=== PATIENT | female | born 1940 | race Caucasian/White ===

== ENCOUNTER 2018-08-22 14:16 | Observation (INO) | payer MEDICARE, MEDICAID, SELFPAY ==
[2018-08-22 14:17] VITALS: BP 115/69; PULSE 67; RESP 16; TEMP 37; O2SAT 98; BMI 26.6
--- NOTE | 2018-08-22 14:24 | HMH.EDGENADL ---
ED Disposition Clinical Impression: Dehydration, Acute kidney injury Diarrhea Qualifiers: Diarrhea type: unspecified type Qualified Code(s): R19.7 - Diarrhea, unspecified Disposition: Admitted as Observation Condition on Discharge: Fair Referrals: Provider,Referral, [Primary Care Provider] - - Critical Care Critical Care Time: No Attestation: On 08/22/18, the high probability of a clinically significant, sudden or life threatening deterioration of the following system(s) required my full and direct attention, intervention and personal management. The time I documented below is in addition to time spent performing reported procedures but includes the following listed in this critical care notation. Medical Decision Making - Zeke Inquiry Pt receiving controlled substance: No Vital Signs: 08/22/18 14:17 Temperature 98.6 F Temperature Source Oral Pulse Rate [Right Brachial] 67 Respiratory Rate 16 Blood Pressure [Right Arm] 115/69 Blood Pressure Mean [Right Arm] 84 Blood Pressure Source [Right Arm] Automatic Cuff Blood Pressure Position [Right Arm] Sitting 02 Sat by Pulse Oximetry 98 Oxygen Delivery Method Room Air - Lab Data Lab Results 08/22/18 14:45: WBC 6.8, RBC 4.61, Hgb 13.3, Hct 39.0, MCV 84.6, MCH 28.9, MCHC 34.1, RDW 12.9, Plt Count 352, MPV 6.6 L, Neut % (Auto) 82.0 H, Lymph % (Auto) 12.7, [place] % (Auto) 4.2, Eos % (Auto) 0.8, Baso % (Auto) 0.4, Neut # (Auto) 5.5, Lymph # (Auto) 0.9, [place] # (Auto) 0.3, Eos # (Auto) 0.1, Baso # (Auto) 0.0 08/22/18 14:45: Sodium 139, Potassium 4.3, Chloride 103, Carbon Dioxide 23, Anion Gap 17.3 H, BUN 59 H, Creatinine 1.77 H, Estimated Creat Clear 32, Estimated GFR 28 L, Est GFR ( Amer) 34 L, Glucose 104, Calcium 9.7, Total Bilirubin 0.4, AST 22, ALT 34, Alkaline Phosphatase 93, Total Protein 7.9, Albumin 3.4, Globulin 4.5 H, Albumin/Globulin Ratio 0.8 L 08/22/18 14:45: Troponin I < 0.02 Result diagrams: 08/22/18 14:45 08/22/18 14:45 Orders (Tests/Meds): ED MEDICATIONS Generic Name Dose Route Start Last Admin Trade Name Ada PRN Reason Stop Dose Admin Sodium Chloride 1,000 mls @ 100 mls/hr 08/22/18 15:30 08/22/18 15:39 Sod Chlor 0.9% 1000ml Bag IV 09/21/18 15:29 100 mls/hr .Q10H CAROLYN Administration Lactated Ringer's 1,000 mls @ 500 mls/hr 08/22/18 16:30 Lactated Ringer's 1000 Ml Bag IV 09/21/18 16:29 .Q2H CAROLYN ORDERS Category Date Time Status Diarrhea 23 Panel, PCR Stat Lab 08/22/18 14:23 Ordered Urinalysis and Microscopic Stat Lab 08/22/18 14:23 Ordered - ECG Data Tracing #1 EKG interpreted by Grzegorz Mejia MD: Rhythm: sinus Rate: 70 Odon: normal Ectopy: none Conduction: normal ST Segment Changes: none T Wave Changes: none Q Waves: none No evidence of acute ischemia or injury Baseline artifact and wander present, but I consider the EKG adequate for accurate interpretation. - Physician Consults Physician Consulted: Telma Time: 16:19 Reason -: Admission Comment/Response: Agrees to admit the patient to the hospital. We discussed the patient's clinical information, including history, exam, laboratory and radiology results and ED course. Per hospital procedure, I will write temporary bridge inpatient orders on the patient. Specific orders requested by the admitting physician: Bolus 1 L of lactated Ringer's over 2 hours, then infusion of saline as previously ordered. Recheck labs in the morning. Medical Decision Narrative: BUN and creatinine significantly elevated compared to labs from 8 months ago General Adult HPI - General Chief complaint: Weakness Stated complaint: weakness Time Seen by Provider: 08/22/18 14:46 Mode of Arrival: EMS Limitations: No Limitations Description of Symptoms (Recalled from ER Triage Doc. by RN): Pt c/o not being able to eat/drink for the past couple of days. No vomiting but diarrhea and feeling weak - History of Present Illness HPI narrative: The
--- NOTE | 2018-08-22 14:43 | PC.NURSE ---
Lab at bedside, MD at bedside
[2018-08-22 15:08] LABS: Basophils % 0.4 % (0.1-2.0); Eosinophils # 0.1 K/mm3 (0.0-0.4); Eosinophils % 0.8 % (0.1-12.0); Hemoglobin 13.3 g/dL (12.2-16.2); Lymphocytes # 0.9 K/mm3 (0.7-4.5); Lymphocytes % 12.7 % (10-50); Mean Corpuscular HGB Conc 34.1 g/dL (31.8-35.4); Mean Corpuscular Hemoglobin 28.9 pg (27.0-31.2); Mean Corpuscular Volume 84.6 fl (81-99); Mean Platelet Volume 6.6 fl (7.4-10.4); Monocytes # 0.3 K/mm3 (0.1-1.0); Monocytes % 4.2 % (1.7-9.3); Neutrophils # 5.5 K/mm3 (1.8-7.8); Platelet Count 352 K/mm3 (142-424); Red Blood Count 4.61 M/mm3 (4.20-5.40); Red Cell Distribution Width 12.9 % (11.5-17.5); White Blood Count 6.8 K/mm3 (4.8-10.8)
[2018-08-22 15:20] LABS: Alanine Aminotransferase 34 U/L (12-78); Albumin Level 3.4 gm/dL (3.4-5.0); Albumin/Globulin Ratio 0.8 (1.1-1.8); Alkaline Phosphatase 93 U/L (46-116); Anion Gap 17.3 mEq/L (5-15); Aspartate Amino Transferase 22 U/L (15-37); Bilirubin,Total 0.4 mg/dL (0.2-1.0); Blood Urea Nitrogen 59 mg/dL (7-18); Calcium 9.7 mg/dL (8.5-10.1); Carbon Dioxide 23 mmol/L (21.0-32.0); Chloride 103 mmol/L (98-107); Creatinine Clearance Estimated 32 mL/min (50-200); Creatinine,Serum 1.77 mg/dL (0.55-1.02); Estimated Glomerular Filt Rate 28 ml/min (>60); GFR (African American) 34 ML/MIN (>60); Globulin 4.5 gm/dl (1.3-3.2); Glucose 104 mg/dL (74-106); Potassium 4.3 mmoL/L (3.5-5.1); Sodium 139 mmol/L (136-145); Total Protein,Serum 7.9 gm/dL (6.4-8.2)
[2018-08-22 15:55] LABS: Troponin I < 0.02 ng/ml (0.00-0.06)
--- NOTE | 2018-08-22 16:10 | PC.NURSE ---
requesting service doctor. Dr. Ribera is service this month however is already out of office. Dr. Hollis is general hardware salesperson for Dr. Ribera. Spoke with Sheree in Dr. Rain office who states that he has three more patients to see but will notify him to call ED when he is available.
--- NOTE | 2018-08-22 16:14 | PC.NURSE ---
Dr. Mejia speaking with Dr. Hollis who is radio personality for [facility] for service
[2018-08-22 16:58] LABS: Microscopic, Urine URINE MICROSCOPIC (MICROSCOPIC)
[2018-08-22 17:02] VITALS: BP 125/85; PULSE 85; RESP 16; TEMP 36.8; O2SAT 98
[2018-08-22 17:03] LABS: Appearance,Urine CLEAR (Clear); Blood, Urine 1+ (Negative); Color,Urine YELLOW (Yellow); Glucose,Urine (UA) Negative (Negative); Ketones,Urine 1+ (Negative); Leukocyte Esterase,Urine 1+ (Negative); Nitrate,Urine Negative (Negative); Protein,Urine Negative (Negative); Urobilinogen,Urine 0.2 EU/dl (0.2)
[2018-08-22 17:11] LABS: Bilirubin,Urine Negative (Negative)
[2018-08-22 17:13] LABS: Bacteria,Urine 1+ /lpf; Squamous Epithelial Cell,Urine Occasional #/hpf (0-5)
[2018-08-22 17:22] VITALS: BP 116/65; PULSE 81; RESP 17; TEMP 36.4; O2SAT 96; BMI 26.3
[2018-08-22 18:21] VITALS: O2SAT 96
--- NOTE | 2018-08-22 18:45 | PC.NURSE ---
PATIENT ARRIVED ON FLOOR PER WHEELCHAIR, ABLE TO AMBULATE TO BED, A&OX4, LUNGS CLEAR, PULSES EQUAL, NO EDEMA NOTED. DR. DALAL AT BEDSIDE, INSTRUCTED PATIENT TO NOT EAT DAIRY PRODUCTS OR ANYTHING WITH RED COLORING. ORDERED LR 500ML/HR FOR 2 HOURS. PATIENT REFUSED TO EAT DINNER, RN PROVIDED JELLO, PATIENT ATE JELLO. PATIENT PROVIDED DIARRHEA SAMPLE, SAMPLE SENT TO LAB. PATIENT REFUSED TEDS, PATIENT EDUCATED ON IMPORTANCE OF [facility], PATIENT VERBALIZED AN UNDERSTANDING. NO OTHER NEEDS OR CONCERNS AT THIS TIME.
[2018-08-22 18:57] LABS: Adenovirus F 40/41, stool Not Detected (NotDetected); Astrovirus Not Detected (NotDetected); Campylobacter Not Detected (NotDetected); Cryptosporidium Not Detected (NotDetected); Cyclospora Cayetanesis Not Detected (NotDetected); Entamoeba histolytica Not Detected (NotDetected); Enteroaggregative E coli Not Detected (NotDetected); Enteropathogenic E coli Not Detected (NotDetected); Enterotoxigenic E coli Not Detected (NotDetected); Giardia lamblia Not Detected (NotDetected); Norovirus Not Detected (NotDetected); Plesimonas Shigalloides, PCR Not Detected (NotDetected); Rotavirus A Not Detected (NotDetected); Salmonella, PCR Not Detected (NotDetected); Sapovirus Not Detected (NotDetected); Shiga-like toxin E coli Not Detected (NotDetected); Shigella Enterovasive E coli Not Detected (NotDetected); Vibrio Cholerae Not Detected (NotDetected); Vibrio, PCR Not Detected (NotDetected); Yersinia Entercolitica, PCR Not Detected (NotDetected)
[2018-08-22 20:00] VITALS: BP 109/50; PULSE 70; RESP 18; TEMP 36.4; O2SAT 97
[2018-08-22 21:20] LABS: Clostridium Difficile A/B, PCR Detected (NotDetected)
--- NOTE | 2018-08-22 21:44 | HMH.HP ---
*Admission Date: 08/22/18 *Chief complaint: Diarrhea, fatigue *History of present illness: 78-year-old female with multiple comorbidities who presented to the ER due to fatigue, diarrhea, dehydration. She is a difficult time giving her history so family at bedside has assisted with several aspects. Patient reports that she has had some diarrhea for the past 3 to 4 days. Denies any nausea or vomiting, fevers, abdominal pain. She does not recall seeing her primary care doctor yesterday but her family reports that she must of seen someone yesterday as they started her on Flagyl. She cannot recall if she has started this medication. At this time she takes lisinopril for blood pressure but no other medications. The family reports that she is gotten extensive history including colon cancer. Patient lives by herself but has family close by that check on her daily. She has otherwise been maintaining her ADLs until onset of this illness with diarrhea. Denies melenic stools or BRBPR. Hemodynamically stable on RA. Labs on admission found BEV, elevated BUN, stool culture with H History I have reviewed the patient's past medical history: Yes Medical History: Reports:: Cancer (COLON) Denies:: Diabetes Mellitus Type 1, Diabetes Mellitus Type 2, Internal Pacemaker, MRSA *Have you ever received a pneumonia vaccine?: No *Have you received a flu vaccine this season?: No Other Surgeries: No: Pacemaker Amputation: No Fractures: No - *Social History Educational Level: Attended College Alcohol Intake: never *Occupational Status:: retired Housing: other Household Members: significant other *Travel in the last 8 weeks: None - Psychiatric History Expresses thoughts of harming self/others: None Suicide Plan Description: No Plan Family Hx:: Cancer, Coronary Artery Disease, Heart Attack, Hyperlipidemia, Hypertension Review of Systems - Review of Systems Review of systems:: pertinent systems reviewed and negative unless documented below - *Neurologic Denies headache(s) Meds Home Medications Medication Instructions Recorded Confirmed Type Aspirin [Aspirin 81mg chewable 81 mg PO DAILY 12/06/17 08/22/18 History tab] Allergies Allergy/AdvReac Type Severity Reaction Status Date / Time No Known Allergies Allergy Verified 08/22/18 14:21 Exam Vital signs and Labs for Last 24 Hours: Temp Pulse Resp BP Pulse Ox 97.5 F L 81 17 116/65 96 08/22/18 17:22 08/22/18 17:22 08/22/18 17:22 08/22/18 17:22 08/22/18 18:21 Laboratory Results - last 24 hr 08/22/18 14:45: WBC 6.8, RBC 4.61, Hgb 13.3, Hct 39.0, MCV 84.6, MCH 28.9, MCHC 34.1, RDW 12.9, Plt Count 352, MPV 6.6 L, Neut % (Auto) 82.0 H, Lymph % (Auto) 12.7, [place] % (Auto) 4.2, Eos % (Auto) 0.8, Baso % (Auto) 0.4, Neut # (Auto) 5.5, Lymph # (Auto) 0.9, [place] # (Auto) 0.3, Eos # (Auto) 0.1, Baso # (Auto) 0.0 08/22/18 14:45: Sodium 139, Potassium 4.3, Chloride 103, Carbon Dioxide 23, Anion Gap 17.3 H, BUN 59 H, Creatinine 1.77 H, Estimated Creat Clear 32, Estimated GFR 28 L, Est GFR ( Amer) 34 L, Glucose 104, Calcium 9.7, Total Bilirubin 0.4, AST 22, ALT 34, Alkaline Phosphatase 93, Total Protein 7.9, Albumin 3.4, Globulin 4.5 H, Albumin/Globulin Ratio 0.8 L 08/22/18 14:45: Troponin I < 0.02 08/22/18 16:55: Urine Color Yellow, Urine Appearance Clear, Urine pH 6.0, Ur Specific [place] 1.020, Urine Protein Negative, Urine Glucose (UA) Negative, Urine Ketones 1+, Urine Blood 1+, Urine Nitrate Negative, Urine Bilirubin Negative, Urine Urobilinogen 0.2, Ur Leukocyte Esterase 1+ A, Urine WBC 3-5, Ur Squamous Epith Cells Occasional, Urine Bacteria 1+ 08/22/18 18:24: Stl Aeromonas (PCR) Not detected, Stl C. cayetanensis PCR Not detected, Stool Rotavirus (PCR) Not detected, Stl Adenov F 40/41 PCR Not detected, Stool Astrovirus (PCR) Not detected, Stool Campylobacter PCR Not detected, Stl C.difficile Tox PCR Detected A, Stool Cryptosporidium PCR Not detected, Stl E.coli Shiga Tox P
--- NOTE | 2018-08-22 21:51 | P.HP_ITS ---
*Admission Date: 08/22/18 *Chief complaint: Diarrhea, fatigue *History of present illness: 78-year-old female with multiple comorbidities who presented to the ER due to fatigue, diarrhea, dehydration. She is a difficult time giving her history so family at bedside has assisted with several aspects. Patient reports that she has had some diarrhea for the past 3 to 4 days. Denies any nausea or vomiting, fevers, abdominal pain. She does not recall seeing her primary care doctor yesterday but her family reports that she must of seen someone yesterday as they started her on Flagyl. She cannot recall if she has started this medication. At this time she takes lisinopril for blood pressure but no other medications. The family reports that she is gotten extensive history including colon cancer. Patient lives by herself but has family close by that check on her daily. She has otherwise been maintaining her ADLs until onset of this illness with diarrhea. Denies melenic stools or BRBPR. Hemodynamically stable on RA. Labs on admission found BEV, elevated BUN, stool culture with H History I have reviewed the patient's past medical history: Yes Medical History: Reports:: Cancer (COLON) Denies:: Diabetes Mellitus Type 1, Diabetes Mellitus Type 2, Internal Pacemaker, MRSA *Have you ever received a pneumonia vaccine?: No *Have you received a flu vaccine this season?: No Other Surgeries: No: Pacemaker Amputation: No Fractures: No - *Social History Educational Level: Attended College Alcohol Intake: never *Occupational Status:: retired Housing: other Household Members: significant other *Travel in the last 8 weeks: None - Psychiatric History Expresses thoughts of harming self/others: None Suicide Plan Description: No Plan Family Hx:: Cancer, Coronary Artery Disease, Heart Attack, Hyperlipidemia, Hypertension Review of Systems - Review of Systems Review of systems:: pertinent systems reviewed and negative unless documented below - *Neurologic Denies headache(s) Meds Home Medications Medication Instructions Recorded Confirmed Type Aspirin [Aspirin 81mg chewable 81 mg PO DAILY 12/06/17 08/22/18 History tab] Allergies Allergy/AdvReac Type Severity Reaction Status Date / Time No Known Allergies Allergy Verified 08/22/18 14:21 Exam Vital signs and Labs for Last 24 Hours: Temp Pulse Resp BP Pulse Ox 97.5 F L 81 17 116/65 96 08/22/18 17:22 08/22/18 17:22 08/22/18 17:22 08/22/18 17:22 08/22/18 18:21 Laboratory Results - last 24 hr 08/22/18 14:45: WBC 6.8, RBC 4.61, Hgb 13.3, Hct 39.0, MCV 84.6, MCH 28.9, MCHC 34.1, RDW 12.9, Plt Count 352, MPV 6.6 L, Neut % (Auto) 82.0 H, Lymph % (Auto) 12.7, [place] % (Auto) 4.2, Eos % (Auto) 0.8, Baso % (Auto) 0.4, Neut # (Auto) 5.5, Lymph # (Auto) 0.9, [place] # (Auto) 0.3, Eos # (Auto) 0.1, Baso # (Auto) 0.0 08/22/18 14:45: Sodium 139, Potassium 4.3, Chloride 103, Carbon Dioxide 23, Anion Gap 17.3 H, BUN 59 H, Creatinine 1.77 H, Estimated Creat Clear 32, Estimated GFR 28 L, Est GFR ( Amer) 34 L, Glucose 104, Calcium 9.7, Total Bilirubin 0.4, AST 22, ALT 34, Alkaline Phosphatase 93, Total Protein 7.9, Albumin 3.4, Globulin 4.5 H, Albumin/Globulin Ratio 0.8 L 08/22/18 14:45: Troponin I < 0.02 08/22/18 16:55: Urine Color Yellow, Urine Appearance Clear, Urine pH 6.0, Ur Specific [place] 1.020, Urine Protein Negative, Urine Gluco
--- NOTE | 2018-08-23 04:21 | PC.NURSE ---
Slept at intervals this shift. Pt in contact-enteric for c diff. Precautions explained to pt and family w/ verbalization of understanding- pt family member states that she has had c diff in the past. [place] transfers [place] [facility] [place]o safety concerns. Refuses TEDS. #20 (L) wrist w/ NS @ 100 mls/hr. VSS. Will continue to monitor.
[2018-08-23 05:12] VITALS: BP 101/52; PULSE 68; RESP 16; TEMP 37; O2SAT 95
[2018-08-23 05:22] VITALS: BMI 25.9
--- NOTE | 2018-08-23 07:15 | PC.NURSE ---
REPORT GIVEN TO Baljinder WINSLOW
--- NOTE | 2018-08-23 07:25 | HMH.PHAVTE ---
[facility] Pharmacy VTE Monitoring - Patient Demographics Admission date: 08/22/18 Report Date: 08/23/18 Time: 07:25 Allergies/Adverse Reactions: Patient Allergies No Known Allergies Allergy (Verified 08/22/18 14:21) Height: 1.7 m Weight: 75.296 kg Patient Problems: Current Active Problems (Updated 08/22/18 @ 22:01 by Tommie Hollis MD) Dehydration (Acute) Acute kidney injury (Acute) Diarrhea (Acute) Essential hypertension (Chronic) C. difficile colitis (Acute) - VTE Risk Labs: VTE Related Lab Results Hgb 13.3 g/dL (12.2-16.2) 08/22/18 14:45 Hct 39.0 % (37.0-47.0) 08/22/18 14:45 Plt Count 352 K/mm3 (142-424) 08/22/18 14:45 BUN 59 mg/dL (7-18) H 08/22/18 14:45 Creatinine 1.77 mg/dL (0.55-1.02) H 08/22/18 14:45 Estimated Creat Clear 32 mL/min (50-200) 08/22/18 14:45 VTE Score: 6 VTE Risk Level: Moderate Risk - Prophylaxis VTE Prophylaxis Ordered?: Yes Types of VTE Prophylaxis: TEDS Knee High Location of Applied Device: Bilateral Lower Extremeties - VTE Diagnosis Confirmed Treatment or plan recommended: Continue Current Treatment
[2018-08-23 08:00] VITALS: BP 110/55; PULSE 79; RESP 18; TEMP 36.8; O2SAT 99
[2018-08-23 08:23] LABS: Blood Urea Nitrogen 38 mg/dL (7-18); Carbon Dioxide 20 mmol/L (21.0-32.0); Chloride 110 mmol/L (98-107); Creatinine Clearance Estimated 55 mL/min (50-200); Creatinine,Serum 0.91 mg/dL (0.55-1.02); Estimated Glomerular Filt Rate 60 ml/min (>60); GFR (African American) 72 ML/MIN (>60); Glucose 97 mg/dL (74-106); Sodium 143 mmol/L (136-145)
[2018-08-23 08:43] LABS: Calcium 8.2 mg/dL (8.5-10.1)
[2018-08-23 08:50] LABS: Basophils % 0.4 % (0.1-2.0); Eosinophils # 0.1 K/mm3 (0.0-0.4); Eosinophils % 1.6 % (0.1-12.0); Hematocrit 35.6 % (37.0-47.0); Lymphocytes # 0.9 K/mm3 (0.7-4.5); Lymphocytes % 15.4 % (10-50); Mean Corpuscular HGB Conc 31.5 g/dL (31.8-35.4); Mean Corpuscular Hemoglobin 28.8 pg (27.0-31.2); Mean Corpuscular Volume 91.5 fl (81-99); Mean Platelet Volume 6.9 fl (7.4-10.4); Monocytes # 0.2 K/mm3 (0.1-1.0); Monocytes % 3.1 % (1.7-9.3); Neutrophils # 4.7 K/mm3 (1.8-7.8); Neutrophils % 79.5 % (37.0-80.0); Platelet Count 267 K/mm3 (142-424); Red Blood Count 3.89 M/mm3 (4.20-5.40); Red Cell Distribution Width 13.9 % (11.5-17.5); White Blood Count 5.9 K/mm3 (4.8-10.8)
--- NOTE | 2018-08-23 08:56 | HMH.DCSUM ---
General - General Admission date:: 08/22/18 Discharge date: 08/23/18 HPI HPI: 78-year-old female with multiple comorbidities who presented to the ER due to fatigue, diarrhea, dehydration. She is a difficult time giving her history so family at bedside has assisted with several aspects. Patient reports that she has had some diarrhea for the past 3 to 4 days. Denies any nausea or vomiting, fevers, abdominal pain. She does not recall seeing her primary care doctor yesterday but her family reports that she must of seen someone yesterday as they started her on Flagyl. She cannot recall if she has started this medication. At this time she takes lisinopril for blood pressure but no other medications. The family reports that she is gotten extensive history including colon cancer. Patient lives by herself but has family close by that check on her daily. She has otherwise been maintaining her ADLs until onset of this illness with diarrhea. Denies melenic stools or BRBPR. Hemodynamically stable on RA. Labs on admission found BEV, elevated BUN, stool culture with PCR evidence of C. difficile Hospital Course Hospital Course: Patient was admitted, rehydrated. Acute kidney injury resolved this morning with normal creatinine. Diarrhea slowed, continues to have some liquid stools but less frequent. No blood. No fevers. Exam normalized this morning. Patient will be discharged home to follow-up with her regular physicians with 1 week supply of vancomycin orally. Objective Vital signs: Temp Pulse Resp BP Pulse Ox 98.2 F 79 18 110/55 L 99 08/23/18 08:00 08/23/18 08:00 08/23/18 08:00 08/23/18 08:00 08/23/18 08:00 Narrative: Patient is pleasant, alert, oriented x3. Oropharynx clear. Heart rate regular. Lungs are clear, abdomen soft, no tenderness. Normal bowel sounds. No edema or clubbing. Results Labs on day of discharge: Labs from last 24 hours 08/23/18 08/23/18 08/22/18 08:39 05:46 18:24 WBC 5.9 RBC 3.89 L Hgb Hct 35.6 L MCV 91.5 MCH 28.8 MCHC 31.5 L RDW 13.9 Plt Count 267 MPV 6.9 L Neut % (Auto) 79.5 Lymph % (Auto) 15.4 [place] % (Auto) 3.1 Eos % (Auto) 1.6 Baso % (Auto) 0.4 Neut # (Auto) 4.7 Lymph # (Auto) 0.9 [place] # (Auto) 0.2 Eos # (Auto) 0.1 Baso # (Auto) 0.0 Sodium 143 Potassium 5.0 Chloride 110 H Carbon Dioxide 20 L Anion Gap 18.0 H BUN 38 H D Creatinine 0.91 D Estimated Creat Clear 55 Estimated GFR 60 Est GFR ( Amer) 72 D Glucose 97 Calcium 8.2 L D Total Bilirubin AST ALT Alkaline Phosphatase Troponin I Total Protein Albumin Globulin Albumin/Globulin Ratio Urine Color Urine Appearance Urine pH Ur Specific [place] Urine Protein Urine Glucose (UA) Urine Ketones Urine Blood Urine Nitrate Urine Bilirubin Urine Urobilinogen Ur Leukocyte Esterase Urine WBC Ur Squamous Epith Cells Urine Bacteria Stl Aeromonas (PCR) Not detected Stl C. cayetanensis PCR Not detected Stool Rotavirus (PCR) Not detected Stl Adenov F 40/41 PCR Not detected Stool Astrovirus (PCR) Not detected Stool Campylobacter PCR Not detected Stl C.difficile Tox PCR Detected A Stool Cryptosporidium PCR Not detected Stl E.coli Shiga Tox PCR Not detected Stool E coli O157 PCR Not detected Stl Enterotoxigenic E PCR Not detected Stool EPEC (PCR) Not detected Stool EAEC (PCR) Not detected Stl E. histolytica PCR Not detected Stool Giardia [place] PCR Not detected Stool Salmonella PCR Not detected Stool Sapovirus (PCR) Not detected Stl P. shigelloides PCR Not detected Stl Shigella/EIEC PCR Not detected St Y.enterocolitica PCR Not detected Stool Vibrio (PCR) Not detected Stl Vibrio cholerae PCR Not detected Stl Norovirus GI/GII PCR Not detected
--- NOTE | 2018-08-23 08:59 | P.DS_ITS ---
General - General Admission date:: 08/22/18 Discharge date: 08/23/18 HPI HPI: 78-year-old female with multiple comorbidities who presented to the ER due to fatigue, diarrhea, dehydration. She is a difficult time giving her history so family at bedside has assisted with several aspects. Patient reports that she has had some diarrhea for the past 3 to 4 days. Denies any nausea or vomiting, fevers, abdominal pain. She does not recall seeing her primary care doctor yesterday but her family reports that she must of seen someone yesterday as they started her on Flagyl. She cannot recall if she has started this medication. At this time she takes lisinopril for blood pressure but no other medications. The family reports that she is gotten extensive history including colon cancer. Patient lives by herself but has family close by that check on her daily. She has otherwise been maintaining her ADLs until onset of this illness with diarrhea. Denies melenic stools or BRBPR. Hemodynamically stable on RA. Labs on admission found BEV, elevated BUN, stool culture with PCR evidence of C. difficile Hospital Course Hospital Course: Patient was admitted, rehydrated. Acute kidney injury resolved this morning with normal creatinine. Diarrhea slowed, continues to have some liquid stools but less frequent. No blood. No fevers. Exam normalized this morning. Patient will be discharged home to follow-up with her regular physicians with 1 week supply of vancomycin orally. Objective Vital signs: Temp Pulse Resp BP Pulse Ox 98.2 F 79 18 110/55 L 99 08/23/18 08:00 08/23/18 08:00 08/23/18 08:00 08/23/18 08:00 08/23/18 08:00 Narrative: Patient is pleasant, alert, oriented x3. Oropharynx clear. Heart rate regular. Lungs are clear, abdomen soft, no tenderness. Normal bowel sounds. No edema or clubbing. Results Labs on day of discharge: Labs from last 24 hours 08/23/18 08/23/18 08/22/18 08:39 05:46 18:24 WBC 5.9 RBC 3.89 L Hgb Hct 35.6 L MCV 91.5 MCH 28.8 MCHC 31.5 L RDW 13.9 Plt Count 267 MPV 6.9 L Neut % (Auto) 79.5 Lymph % (Auto) 15.4 [place] % (Auto) 3.1 Eos % (Auto) 1.6 Baso % (Auto) 0.4 Neut # (Auto) 4.7 Lymph # (Auto) 0.9 [place] # (Auto) 0.2 Eos # (Auto) 0.1 Baso # (Auto) 0.0 Sodium 143 Potassium 5.0 Chloride 110 H Carbon Dioxide 20 L Anion Gap 18.0 H BUN 38 H D Creatinine 0.91 D Estimated Creat Clear 55 Estimated GFR 60 Est GFR ( Amer) 72 D Glucose 97 Calcium 8.2 L D Total Bilirubin AST ALT Alkaline Phosphatase Troponin I Total Protein Albumin Globulin Albumin/Globulin Ratio Urine Color Urine Appearance Urine pH Ur Specific [place] Urine Protein Urine Glucose (UA) Urine Ketones Urine Blood Urine Nitrate Urine Bilirubin Urine Urobilinogen Ur Leukocyte Esterase Urine WBC Ur
[2018-08-23 09:02] LABS: Hemoglobin 11.3 g/dL (12.2-16.2)
[2018-08-23 09:08] LABS: Anion Gap 14.1 mEq/L (5-15); Blood Urea Nitrogen 34 mg/dL (7-18); Calcium 8.1 mg/dL (8.5-10.1); Carbon Dioxide 23 mmol/L (21.0-32.0); Chloride 111 mmol/L (98-107); Creatinine Clearance Estimated 48 mL/min (50-200); Creatinine,Serum 1.14 mg/dL (0.55-1.02); Estimated Glomerular Filt Rate 46 ml/min (>60); GFR (African American) 56 ML/MIN (>60); Glucose 116 mg/dL (74-106); Potassium 4.1 mmoL/L (3.5-5.1); Sodium 144 mmol/L (136-145)
--- NOTE | 2018-08-23 09:30 | PC.NURSE ---
Pt's home meds returned to her.
--- NOTE | 2018-08-23 11:33 | HMH.PHAINT ---
DISCHARGE COUNSELING PROVIDED TO PATIENT FOR ALL MEDICATIONS. PATIENT VERBALIZED UNDERSTANDING OF NEW MEDICATION PO VANCOMYCIN.
== END 2018-08-23 12:15 | disposition home or self-care (01) ==
LOC: ER 16:20 → 2ND 16:33
PROVIDERS: Internal Medicine Adolescent Medicine; Admitting Provider Internal Medicine Adolescent Medicine; Emergency Provider Emergency Medicine; Visit Provider Internal Medicine Adolescent Medicine
DX: I10 Essential (primary) hypertension (principal); N17.9 Acute kidney failure, unspecified; A04.72 Enterocolitis due to Clostridium difficile, not specified as recurrent; E86.0 Dehydration; Z85.038 Personal history of other malignant neoplasm of large intestine; Z79.82 Long term (current) use of aspirin; Z79.899 Other long term (current) drug therapy
CPT/HCPCS: 36415; 80048; 80053; 81001; 84484; 85025; 87086; 87507; 93005; 96365; 96366; 96367; 99284; G0378; J3370

== ENCOUNTER 2022-05-22 00:29 | Emergency (ER) | payer MEDICARE, MEDICAID, SELFPAY ==
[2022-05-22] VITALS (14 sets, daily range): BP systolic 120–148; BP diastolic 63–97; PULSE 62–108; RESP 16–20; TEMP 36.4–37.2; O2SAT 94–99; BMI 30.2
--- NOTE | 2022-05-22 00:43 | XR_ITS ---
PROCEDURE INFORMATION: Exam: XR Chest Exam date and time: 05/22/2022 12:46 AM Age: 81 years old Clinical indication: Screening exam; Other screening; Additional info: Cardiac clearence TECHNIQUE: Imaging protocol: Radiologic exam of the chest. Views: 2 views. COMPARISON: ABDPELWW CT abdomen pelvis wo/w con 12/06/2017 3:43 PM FINDINGS: Lungs: Unremarkable. No consolidation. Pleural spaces: Unremarkable. No pleural effusion. No pneumothorax. Heart/Mediastinum: Unremarkable. No cardiomegaly. Bones/joints: Moderate degenerative disc changes noted throughout the thoracic spine. IMPRESSION: No acute disease
[2022-05-22 00:46] LABS: Chloride 103 mmol/L (98-107); Sodium 139 mmol/L (136-145)
[2022-05-22 00:47] LABS: Potassium 4.2 mmoL/L (3.5-5.1)
[2022-05-22 00:49] LABS: Alanine Aminotransferase 235 U/L (12-78); Albumin Level 4.3 g/dl (3.5-5.0); Albumin/Globulin Ratio 1.2 (1.1-1.8); Alkaline Phosphatase 163 U/L (38-126); Anion Gap 10.2 mEq/L (5-15); Aspartate Amino Transferase 392 U/L (14-36); Bilirubin,Total 0.9 mg/dl (0.2-1.3); Blood Urea Nitrogen 19 mg/dl (7-17); Carbon Dioxide 30 mmol/L (22.0-30.0); Creatinine Clearance Estimated 58 mL/min (50-200); Estimated Glomerular Filt Rate 69 ml/min (>60); GFR (African American) 83 ML/MIN (>60); Globulin 3.5 g/dL (1.3-3.2); Total Protein,Serum 7.8 g/dl (6.3-8.2)
[2022-05-22 00:50] LABS: Basophils % 0.2 % (0.1-2.0); Eosinophils # 0.1 K/mm3 (0.0-0.4); Eosinophils % 1.2 % (0.1-12.0); Glucose 140 mg/dl (74-100); Hematocrit 44.7 % (37.0-47.0); Hemoglobin 14.6 g/dL (12.2-16.2); Lymphocytes # 0.8 K/mm3 (0.7-4.5); MANUAL DIFFERENTIAL MANUAL DIFFERENTIAL (MANUAL DIFF); Mean Corpuscular HGB Conc 32.6 g/dL (31.8-35.4); Mean Corpuscular Hemoglobin 30.6 pg (27.0-31.2); Mean Corpuscular Volume 93.8 fl (81-99); Mean Platelet Volume 8.3 fl (7.4-10.4); Monocytes # 0.5 K/mm3 (0.1-1.0); Monocytes % 4.2 % (1.7-9.3); Neutrophils # 10.1 K/mm3 (1.8-7.8); Neutrophils % 87.2 % (37.0-80.0); Platelet Count 222 K/mm3 (142-424); Red Blood Count 4.77 M/mm3 (4.20-5.40); White Blood Count 11.6 K/mm3 (4.8-10.8)
[2022-05-22 01:08] LABS: Troponin I < 0.01 ng/ml (0.00-0.034)
--- NOTE | 2022-05-22 01:09 | CT_ITS ---
PROCEDURE INFORMATION: Exam: CT Abdomen And Pelvis With Contrast Exam date and time: 05/22/2022 1:40 AM Age: 81 years old Clinical indication: Other: Elevated liver enzymes TECHNIQUE: Imaging protocol: Computed tomography of the abdomen and pelvis with contrast. Radiation optimization: All CT scans at this facility use at least one of these dose optimization techniques: automated exposure control; mA and/or kV adjustment per patient size (includes targeted exams where dose is matched to clinical indication); or iterative reconstruction. Contrast material: ISOVUE; Contrast volume: 75 ml; Contrast route: IV; REPORTING DATA: Count of CT and Cardiac NM exams in prior 12 months: This patient has received 0 known CTs and 0 known cardiac nuclear medicine studies in the 12 months prior to the current study. COMPARISON: ABDPELWW CT abdomen pelvis wo/w con 12/06/2017 3:43 PM FINDINGS: Liver: There has developed moderate periportal edema throughout the liver. Gallbladder and bile ducts: Gallbladder is surgically absent. Pancreas: Normal. No ductal dilation. Spleen: Normal. No splenomegaly. Adrenal glands: Normal. No mass. Kidneys and ureters: Normal. No hydronephrosis. Stomach and bowel: There is mild distention of the 3rd portion of the duodenum. Bowel loops are otherwise normal in caliber. There is significant sigmoid diverticulosis. Fluid is present throughout large and small bowel compatible with nonspecific diarrheal illness. There are postsurgical changes suggesting prior proximal colectomy. Appendix: No evidence of appendicitis. Intraperitoneal space: Unremarkable. No free air. No significant fluid collection. Vasculature: Dense atherosclerotic calcification noted in the aorta and its branches. Lymph nodes: Unremarkable. No enlarged lymph nodes. Urinary bladder: Unremarkable as visualized. Reproductive: Uterus is surgically absent. There is a 2.5 cm simple appearing right adnexal cyst. This appears similar to previous. No further workup indicated Bones/joints: Diffuse degenerative disc changes noted throughout the lumbar spine, most severe at the lumbosacral junction. Soft tissues: Diastasis recti and moderate-sized midline ventral hernia again noted IMPRESSION: 1. Nonspecific periportal edema in the liver. This can be seen in patients with hepatocellular disease or cholangitis. Gallbladder appears to be surgically absent. 2. Fluid throughout large and small bowel compatible with nonspecific diarrheal illness.
[2022-05-22 01:16] LABS: Eosinophils % 1 % (0-3); Lymphocytes % 9 % (10-50); Monocytes % 1 % (2-9); Neutrophils % 89 % (42-76); Platelet Estimate Normal; RBC Morphology Normal; Total Cells Counted 100
[2022-05-22 01:29] LABS: Microscopic, Urine URINE MICROSCOPIC (MICROSCOPIC)
[2022-05-22 01:31] LABS: Appearance,Urine CLOUDY (Clear); Blood, Urine 1+ (Negative); Color,Urine YELLOW (Yellow); Glucose,Urine (UA) Negative (Negative); Ketones,Urine TRACE (Negative); Leukocyte Esterase,Urine 1+ (Negative); Nitrate,Urine Negative (Negative); Protein,Urine 1+ (Negative); Specific Gravity, Urine >= 1.030 (1.005-1.030); Urobilinogen,Urine 0.2 EU/dl (0.2)
--- NOTE | 2022-05-22 01:34 | ECG_ITS ---
APPROVED REPORT Exam: Resting ECG HR:102 bpm ECG Measurements Heart Rate 102 AXES WA 150 P 73 QRSd 90 QRS 47 QT 364 T 87 QTc 423 Conclusion SINUS TACHYCARDIA ABNORMAL RHYTHM ECG UNCONFIRMED REPORT Electronically signed by : Elliot Rice MD 05/22/2022 11:46:40
--- NOTE | 2022-05-22 01:38 | PC.NURSE ---
patient gone to CT at this time.
[2022-05-22 01:39] LABS: Amylase 127 U/L (30-110)
[2022-05-22 01:44] LABS: C-Reactive Protein 1.1 mg/L (0-4)
[2022-05-22 01:47] LABS: Lipase 668 U/L (23-300)
--- NOTE | 2022-05-22 01:47 | PC.NURSE ---
patient back in room at this time
[2022-05-22 01:54] LABS: Bilirubin,Urine 1+ (Negative)
[2022-05-22 01:54] LABS: Erythrocyte Sedimentation Rate 15 mm/hr (0-30)
[2022-05-22 01:55] LABS: Bacteria,Urine 3+ /lpf; RBC,Urine Occasional #/hpf (0-3); Squamous Epithelial Cell,Urine Occasional #/hpf (0-5)
--- NOTE | 2022-05-22 02:34 | PC.NURSE ---
Rounded on patient, patient voiced no needs at this time.
--- NOTE | 2022-05-22 02:40 | HMH.EDUROGF ---
Discharge Plan Disposition Chief Complaint: Urogenital-Female Prescriptions Prescriptions: No Action aspirin 81 MG tablet,chewable 81 mg PO DAILY atorvastatin 40 mg tablet 40 mg PO DAILY loratadine 10 mg tablet 10 mg PO DAILY Myrbetriq 50 mg tablet extended release 24 hr 50 mg PO DAILY Referrals Follow up/Referrals: Provider,Referral, [Primary Care Provider] - See instructions Clinical Impressions Clinical Impression: Elevated liver transaminase level, Acute pancreatitis, Abnormal CT of the abdomen Stand Alone Forms Stand Alone Forms: Transfer Record - ED Discharge ED Provider: Jaimie (ED)Cordell Female Urogenital HPI General Chief complaint: Urogenital-Female Stated complaint: dehydration Time Seen by Provider: 05/22/22 02:15 Mode of Arrival: EMS Source of Information: Relative, EMS and Medical Record Limitations: No Limitations Description of Symptoms (Recalled from ER Triage Doc. by RN): pt to ED complaining of possible dehydration. pt stated she was drinking lots of fluids today but then noticed she was urinating more than usual to the point she was worried she was getting dehydrated. pt reports her sibilings called EMS because they were worried she was urinating too much History of Present Illness HPI Narrative: pt with upper abd pain/lower chest pain assoc with nonbldy diarrhea and episode of dry heaves - no blood in stool - has hx of c diff in past - last admit 2018 - also has hx of colon ca 2011 with surg - no fever - Onset (ago): day(s) Severity: mild Related Data Home Medications Medication Instructions Recorded Confirmed aspirin 81 mg chewable tablet 81 mg PO DAILY Heart disease 12/06/17 05/22/22 atorvastatin 40 mg tablet 40 mg PO DAILY Cholesterol 05/22/22 05/22/22 loratadine 10 mg tablet 10 mg PO DAILY Allergy symptoms 05/22/22 05/22/22 mirabegron 50 mg tablet,extended 50 mg PO DAILY bladder 05/22/22 05/22/22 release 24 hr (Myrbetriq) Allergies Allergy/AdvReac Type Severity Reaction Status Date / Time No Known Allergies Allergy Verified 08/22/18 14:21 [facility] Disclaimer: The information contained in this section may have been updated after the patient was seen, as this information can be updated by other users. Social History Smoking Status: Smoker, status unknown alcohol intake: never current occupational status: retired Travel in the last 8 weeks: None household members: significant other housing: other caffeine: No ROS Obtained: Yes All systems reviewed & no additional complaints except as documented Physical Exam General General appearance: alert Head Head exam: normocephalic Eye Eye exam: Present PERRL and EOMI; Absent scleral icterus ENT ENT exam: Present mucous membranes dry Neck Neck exam: Present trachea midline Respiratory Respiratory exam: Present normal lung sounds bilaterally; Absent respiratory distress Cardiovascular Cardiovascular exam: Present regular rate, systolic murmur and +S4 Abdominal Exam Abdominal exam: Present soft and tenderness; Absent guarding or rebound Abdominal tenderness: Present epigastrium and mild Extremities Exam Extremities exam: Absent calf tenderness Neurological Exam Neurological exam: Present alert, oriented X3 and CN II-XII intact; Absent motor sensory deficit Psychiatric Psychiatric exam: Present normal affect Skin Skin exam: Absent rash Medical Decision Making Medical Records Medical records reviewed: Yes I reviewed the patient's medical records. Zeke Inquiry Pt receiving controlled substance: No Vital Signs: 05/22/22 00:19 05/22/22 00:30 05/22/22 01:05 Temperature 97.5 F L Temperature Source Oral Pulse Rate 85 99 H Pulse Rate [Left Radial] 68 Respiratory Rate 17 Blood Pressure 148/70 H 147/97 H Blood Pressure [Right Arm] 132/68 Blood Pressure Mean 113 Blood Pressure Mean [Right Arm] 89 Blood Pressure Source [Right Arm] Automatic Cuff
[2022-05-22 03:42] LABS: Coronavirus 19, PCR Not Detected (NotDetected); Influenza A, PCR Not Detected (NotDetected); Influenza B, PCR Not Detected (NotDetected)
[2022-05-22 03:45] LABS: INR 0.97 (0.9-1.1); Prothrombin Time 10.5 seconds (10.1-12.5)
[2022-05-22 03:50] LABS: Ammonia < 9 umol/L (9-30)
--- NOTE | 2022-05-22 03:53 | PC.NURSE ---
Called [facility], Hospitalist will call back to put patient on wait list.
--- NOTE | 2022-05-22 03:54 | PC.NURSE ---
call placed to [facility] at this time per md request.
--- NOTE | 2022-05-22 03:56 | PC.NURSE ---
contacted [facility] for possible transfer.
--- NOTE | 2022-05-22 04:01 | PC.NURSE ---
MD spoke to physician on-call; received information that they have no waitlist or beds available at .
--- NOTE | 2022-05-22 04:05 | PC.NURSE ---
[facility]
--- NOTE | 2022-05-22 04:06 | PC.NURSE ---
Called [facility], patient being put on wait list.
--- NOTE | 2022-05-22 04:22 | PC.NURSE ---
rounded on patient, no needs voiced at this time.
[2022-05-22 04:24] LABS: Lactic Acid 2.5 mmol/L (0.7-2.1)
[2022-05-22 04:26] LABS: Troponin I < 0.01 ng/ml (0.00-0.034)
--- NOTE | 2022-05-22 05:34 | PC.NURSE ---
received call back from dr lopez at [facility]. Family remains at bedside.
--- NOTE | 2022-05-22 05:43 | PC.NURSE ---
[facility]
--- NOTE | 2022-05-22 05:54 | PC.NURSE ---
Received call back from Almita with the transfer center who stated patient is now accepted.
--- NOTE | 2022-05-22 06:01 | PC.NURSE ---
attempted to call report, requested we call back in a little bit due to receiving multiple admissions at once.
--- NOTE | 2022-05-22 06:22 | PC.NURSE ---
attempted to call report to 4a; natty answered the phone, placed on hold. unable to take report at this time.
--- NOTE | 2022-05-22 06:42 | PC.NURSE ---
notified EMS that pt is ready to transport to [facility]
--- NOTE | 2022-05-22 07:07 | PC.NURSE ---
care given to Madina Velazquze RN
--- NOTE | 2022-05-22 07:42 | PC.NURSE ---
EMS here to transfer patient
[2022-05-22 08:02] LABS: Reflex Lactic Add Lactic Reflex
[2022-05-29 02:10] LABS: Hep A Ab, IgM Negative; Hepatitis B Core Antibody IgM Negative; Hepatitis B Surface Antigen Negative
[2022-05-29 02:11] LABS: Hepatitis C Antibody Non Reactive
== END 2022-05-22 07:50 | disposition short-term general hospital (02) ==
PROVIDERS: Emergency Provider Emergency Medicine
DX: K85.90 Acute pancreatitis without necrosis or infection, unspecified (principal); R94.5 Abnormal results of liver function studies; R93.5 Abnormal findings on diagnostic imaging of other abdominal regions, including retroperitoneum; Z86.19 Personal history of other infectious and parasitic diseases; Z85.038 Personal history of other malignant neoplasm of large intestine; Z20.822 Contact with and (suspected) exposure to COVID-19
CPT/HCPCS: 71046; 74177; 80053; 80074; 81001; 82140; 82150; 83605; 83690; 84484; 85007; 85025; 85610; 85651; 86140; 87040; 87086; 87088; 87186; 93005; 96360; 99285; C9803; Q9967; U0003; U0005

== ENCOUNTER 2024-01-12 10:40 | Observation (INO) | payer MEDICARE, MEDICAID, SELFPAY ==
[2024-01-12] VITALS (20 sets, daily range): BP systolic 93–154; BP diastolic 43–92; PULSE 51–65; RESP 14–18; TEMP 36.3–36.7; O2SAT 97–100; BMI 17.2; BMI 20.2
--- NOTE | 2024-01-12 10:48 | ECG_ITS ---
APPROVED REPORT Exam: Resting ECG HR:59 bpm ECG Measurements Heart Rate 59 AXES OK 145 P 81 QRSd 94 QRS 21 QT 429 T 63 QTc 427 Conclusion SINUS BRADYCARDIA BORDERLINE ECG Electronically signed by : DARWIN EISENBERG, 01/12/2024 15:07:07
--- NOTE | 2024-01-12 10:57 | PC.NURSE ---
Dr. Peres at bedside for pt eval
--- NOTE | 2024-01-12 11:02 | CT_ITS ---
PROCEDURE INFORMATION: Exam: CTA Abdomen and Pelvis With Contrast Exam date and time: 01/12/2024 12:08 PM Age: 83 years old Clinical indication: Shortness of breath; Additional info: Diffuse pain bloody bowel movement TECHNIQUE: Imaging protocol: Computed tomographic angiography of the abdomen and pelvis with contrast. Exam focused on the arteries. 3D rendering (Not supervised by radiologist): MIP and/or 3D reconstructed images were created by the technologist. Radiation optimization: All CT scans at this facility use at least one of these dose optimization techniques: automated exposure control; mA and/or kV adjustment per patient size (includes targeted exams where dose is matched to clinical indication); or iterative reconstruction. Contrast material: ISOVUE 370; Contrast volume: 80 ml; Contrast route: INTRAVENOUS (IV); COMPARISON: CT ANGIO CHEST 01/12/2024 12:08 PM FINDINGS: Aorta: No aortic aneurysm. No aortic dissection. 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 Atherosclerotic disease at the origin of the superior mesenteric artery less than 50% disease. Patent inferior mesenteric artery. Note transitional Renal arteries: Bilateral single renal arteries with less than 50% stenosis at their origins. Right iliac arteries: No occlusion or significant stenosis. Left iliac arteries: No occlusion or significant stenosis. Liver: Moderately fatty nonenlarged liver. Gallbladder and biliary ducts: Post cholecystectomy. No biliary dilatation. Pancreas: Unremarkable. No mass. No ductal dilation. Spleen: Unremarkable. No splenomegaly. Adrenal glands: Unremarkable. No mass. Kidneys and ureters: [id number] right hydronephrosis. Proximal ureter is slightly dilated. There is no evidence of nephrolithiasis or ureteral/bladder stones. No hydronephrosis on the left. No abnormal renal masses. Stomach and bowel: Diverticulosis. No evidence of acute diverticulitis. Suspected mild sigmoid colitis. Best seen on images 6/135 through 141. Appendix: No evidence of appendicitis. Intraperitoneal space: Unremarkable. No free air. No significant fluid collection. Lymph nodes: Unremarkable. No enlarged lymph nodes. Urinary bladder: See Kidneys and ureters finding. Reproductive: 25 x 20 mm cystic lesion in the right adnexa possibly ovarian. Post hysterectomy. Bones/joints: Mild degenerative disc disease L4/5 with moderate to severe degenerative disc disease L5/S1. Soft tissues: Fat containing periumbilical hernia. Other findings: The chest will be discussed in a separate examination the. IMPRESSION: 1. Suspect mild sigmoid colitis. 2. Suspect a right ovary cyst. 3. Right-sided hydronephrosis with no apparent etiology. 4. No evidence of extravasation of contrast to suggest GI blood loss site.
--- NOTE | 2024-01-12 11:02 | CT_ITS ---
PROCEDURE INFORMATION: Exam: CTA Chest With Contrast Exam date and time: 01/12/2024 12:08 PM Age: 83 years old Clinical indication: Shortness of breath; Additional info: SOB TECHNIQUE: Imaging protocol: Computed tomographic angiography of the chest with contrast. Exam focused on the arteries. 3D rendering (Not supervised by radiologist): MIP and/or 3D reconstructed images were created by the technologist. Radiation optimization: All CT scans at this facility use at least one of these dose optimization techniques: automated exposure control; mA and/or kV adjustment per patient size (includes targeted exams where dose is matched to clinical indication); or iterative reconstruction. Contrast material: ISOVUE 370; Contrast volume: 80 ml; Contrast route: INTRAVENOUS (IV); COMPARISON: CT ANGIO ABDOMEN PELVIS 01/12/2024 12:08 PM FINDINGS: Pulmonary arteries: Excellent pulmonary arterial opacification with Hounsfield units of 428. No evidence of pulmonary embolism. Aorta: No evidence of an aortic dissection. No aortic aneurysm. Lungs: Right upper lobe granuloma. Mild emphysematous changes. Pleural spaces: Apical pleural thickening bilaterally. Mild interstitial lung disease changes. Heart: Unremarkable. No cardiomegaly. No pericardial effusion. Lymph nodes: Unremarkable. No enlarged lymph nodes. Intraperitoneal space: The abdomen and pelvis was discussed on a separate examination. Bones/joints: Unremarkable. No acute fracture. Soft tissues: Unremarkable. Other findings: Thin section imaging is available in the CT abdomen/pelvis folder. IMPRESSION: No pulmonary embolism or aortic abnormality.
--- NOTE | 2024-01-12 11:03 | ED_ITS ---
Discharge Plan Disposition Patient Disposition: Home, Self-Care Chief Complaint: Nausea/Vomiting/Diarrhea Prescriptions Prescriptions: No Action aspirin 81 MG tablet,chewable 81 mg PO DAILY atorvastatin 40 mg tablet 40 mg PO DAILY loratadine 10 mg tablet 10 mg PO DAILY Myrbetriq 50 mg tablet extended release 24 hr 50 mg PO DAILY Clinical Impressions Clinical Impression: Abdominal pain, Acute lower gastrointestinal bleeding Print Language Print Language: Puerto Rican Discharge ED Provider: Jaswinder Peres General Adult HPI General Chief complaint: Nausea/Vomiting/Diarrhea Stated complaint: weakness Time Seen by Provider: 01/12/24 10:47 Mode of Arrival: EMS Source of Information: Patient, EMS and Medical Record Limitations: dementia Description of Symptoms (Recalled from ER Triage Doc. by RN): per EMS son states that pt has been having diarrhea and low I/O intake for the past 4 days. PEr pt her only problem is she has no teeth, hard time getting up to the bathroom, and feeling tired. PEr EMS pt lives alone and the son comes to check on her daily. History of Present Illness HPI narrative: Patient is a 83-year-old female with past medical history of previous C. difficile, hypertension, previous pancreatitis who presents emergency department for evaluation of multiple complaints. Patient states that she has had bloody diarrhea 3-4 times a day over the last 3 to 4 days. It is difficult for her to say whether or not it is blood coating her stool or if the whole stool is blood. No vomiting although there is associated nausea. She has associated shortness of breath without cough or chest pain. There is diffuse abdominal pain. Unknown dysuria. She has had multiple abdominal surgeries for which she is a poor historian does not remember. Patient lives alone and has had increased difficulty completing her activities of daily living as of late and has a son who checks on her daily. Related Data Home Medications ?Medication ?Instructions ?Recorded ?Confirmed aspirin 81 mg chewable tablet 81 mg PO DAILY Heart disease 12/06/17 05/22/22 atorvastatin 40 mg tablet 40 mg PO DAILY Cholesterol 05/22/22 05/22/22 loratadine 10 mg tablet 10 mg PO DAILY Allergy symptoms 05/22/22 05/22/22 mirabegron 50 mg tablet,extended 50 mg PO DAILY bladder 05/22/22 05/22/22 release 24 hr (Myrbetriq) Allergies Allergy/AdvReac Type Severity Reaction Status Date / Time No Known Allergies Allergy Verified 08/22/18 14:21 [facility] Disclaimer: The information contained in this section may have been updated after the patient was seen, as this information can be updated by other users. Social History (Updated 05/22/22 @ 06:44 by Cordell Etienne (KIYA)MD) Smoking Status: Unknown if ever smoked alcohol intake: never current occupational status: retired Travel in the last 8 weeks: None household members: significant other housing: other caffeine: No Other Medical History Have you received the Flu Vaccine for this season: Yes Have you received the Pneumonia Vaccine: Yes ROS Obtained: Yes Systems reviewed as appropriate & no additional complaints except as documented Physical Exam General General appearance: alert and in no apparent distress Head Head exam: atraumatic and normocephalic Eye Eye exam: Present PERRL ENT ENT exam: Present mucous membranes moist Neck Neck exam: Present normal inspection Chest Chest inspection: Present normal inspection and symmetric chest wall rise Respiratory Respiratory exam: Present normal lung sounds bilaterally; Absent respiratory distress Cardiovascular Cardiovascular exam: Present regular rate and normal rhythm Abdominal Exam Abdominal exam: Present soft and tenderness (Diffuse); Absent rebound or rigidity Extremities Exam Extremities exam: Present normal inspection and other (Capillary refill 3 seconds, palpable bilateral radial pulses) Neurological Exam Neurological exam: Present alert; Absent motor sensory deficit Psychiatric Psychiatric exam: Present normal affect Skin Skin exam: Present warm and dry Medical Decision Making Medical Records Screening: Per USPSTF and CDC recommendations, given the prevalence of disease in our region, it is our hospital?s policy to screen for HIV and viral Hepatitis for all patients aged 18 and over and those with ongoing risk factors. Zeke Inquiry Pt receiving controlled substance: No Vital Signs: 01/12/24 10:40 01/12/24 11:00 01/12/24 11:31 Temperature 97.8 F Temperature Source Oral Pulse Rate 62 59 L Pulse Rate [Left Radial] 64 Respiratory Rate 18 Blood Pressure 154/75 H 146/68 H Blood Pressure [Right Arm] 153/74 H Blood Pressure Mean 90 83 Blood Pressure Mean [Right Arm] 100 Blood Pressure Source [Right Arm] Automatic Cuff Blood Pressure Position [Right Arm] Sitting 02 Sat by Pulse Oximetry 98 98 98 Oxygen Delivery Method Room Air Room Air Room Air 01/12/24 12:15 01/12/24 12:31 01/12/24 13:01 Temperature Temperature Source Pulse Rate 59 L 60 65 Pulse Rate [Left Radial] Respiratory Rate Blood Pressure 148/66 H 141/60 H 124/51 L Blood Pressure [Right Arm] Blood Pressure Mean 80 74 75 Blood Pressure Mean [Right Arm] Blood Pressure Source [Right Arm] Blood Pressure Position [Right Arm] 02 Sat by Pulse Oximetry 98 97 99 Oxygen Delivery Method Room Air Room Air Room Air Lab Data Lab Results 01/12/24 11:10: Urine Color Yellow, Urine Appearance Clear, Urine pH 6.0, Ur Specific Wink[place] >= 1.030, Urine Protein Trace, Urine Glucose (UA) Negative, Urine Ketones 1+, Urine Blood Trace-i, Urine Nitrate Negative, Urine Bilirubin 1+ A, Urine Urobilinogen 0.2, Ur Leukocyte Esterase Negative, Urine RBC Occasional, Urine WBC Occasional, Ur Squamous Epith Cells 3-5, Urine Bacteria Trace 01/12/24 11:22: WBC 6.8, RBC 4.53, Hgb 13.8, Hct 41.6, MCV 91.7, MCH 30.4, MCHC 33.2, RDW 13.7, Plt Count 189, MPV 7.5, Neut % (Auto) 77.9, Lymph % (Auto) 13.0, [place] % (Auto) 7.0, Eos % (Auto) 1.5, Baso % (Auto) 0.6, Neut # (Auto) 5.3, Lymph # (Auto) 0.9, [place] # (Auto) 0.5, Eos # (Auto) 0.1, Baso # (Auto) 0.0, Sodium 138, Potassium 4.0, Chloride 108 H, Carbon Dioxide 27, Anion Gap 7.0, BUN 19 H, Creatinine 0.60, Estimated Creat Clear 31, Estimated GFR 95, Est GFR ( Amer) 116, Glucose 116 H, Calcium 8.5, Magnesium 2.0, Total Bilirubin 0.8, AST 40 H, ALT 33, Alkaline Phosphatase 78, Troponin I < 0.01, Total Protein 6.8, Albumin 3.7, Globulin 3.1, Albumin/Globulin Ratio 1.2, Lipase 191, HIV 1&2 Antibody Rapid Nonreactive 01/12/24 12:26: VBG pH 7.36, VBG pCO2 33.7 L, VBG pO2 87.1 H, VBG HCO3 18.7 L, V BG Total CO2 19.7 L, VBG O2 Saturation 95.9 H, VBG Base Excess -6.8 L, VBG Lactic Acid 4.4 H 01/12/24 11:22 01/12/24 11:22 Orders (Tests/Meds): ED MEDICATIONS Discontinued Medications Generic Name Dose Route Start Last Admin Trade Name Freq PRN Reason Stop Dose Admin Acetaminophen 1,000 mg 01/12/24 11:03 01/12/24 11:13 Acetaminophen 1,000mg/100ml Vial IV 01/12/24 11:04 1,000 mg ONCE ONE Administration Lactated Ringer's 1,000 mls @ 999 mls/hr 01/12/24 11:08 01/12/24 11:13 Lactated Ringer's 1000 Ml Bag IV 01/12/24 12:08 999 mls/hr .Q1H1M ONE Administration Iopamidol 80 ml 01/12/24 12:18 01/12/24 12:05 Iopamidol-370 (76%);100ml Bottle IV 01/12/24 12:19 80 ml ONCE ONE Administration Ondansetron HCl 4 mg 01/12/24 11:03 01/12/24 11:13 Ondansetron 4mg/2ml Vial IV 01/12/24 11:04 4 mg ONCE ONE Administration Sodium Chloride 40 ml 01/12/24 12:18 01/12/24 12:05 0.9 % Sodium Chloride 50 Ml Vial IV 01/12/24 12:19 40 ml ONCE ONE Administration Sodium Chloride 10 ml 01/12/24 12:18 01/12/24 12:05 Sodium Chloride 0.9% 10ml Syr (Rad Only) IV 01/12/24 12:19 10 ml ONCE ONE Administration ORDERS Category Date Time Status CT angio abdomen pelvis Stat Cat Scan 01/12/24 11:[address] angio chest - dissection Stat Cat Scan 01/12/24 11:02 Completed CBC w/Auto Diff [Complete Blood Count Auto Diff] Stat Lab 01/12/24 11:22 Completed CMP [Comprehensive Metabolic Panel] Stat Lab 01/12/24 11:22 Completed Diarrhea 23 Panel, PCR Stat Lab 01/12/24 10:47 Ordered HIV (1&2) Antibody Rapid Stat Lab 01/12/24 11:22 Completed Hep C Ab with Reflex to RNA Stat Lab 01/12/24 11:22 Received Lipase Stat Lab 01/12/24 11:22 Completed MG [Magnesium] Stat Lab 01/12/24 11:22 Completed Trop I [Troponin I] Stat Lab 01/12/24 11:22 Completed Troponin I Q3H Lab 01/12/24 14:00 Ordered Troponin I Q3H Lab 01/12/24 17:00 Ordered UA [Urinalysis and Microscopic] Stat Lab 01/12/24 11:10 Completed VBG [Venous Blood Gas] Stat RT 01/12/24 12:26 Completed ECG Data Tracing #1: Independently interpreted by me rate is 59, rhythm is regular, axis is normal, no ST elevation in anatomical contiguous leads, QTc 427. Medical Decision Narrative: In summary patient is 83-year-old female past medical history described above presents emergency department for evaluation of multiple complaints. Patient is hemodynamically stable and nontoxic-appearing upon arrival,. Differential includes bleeding mass, internal hemorrhoids, diverticulosis, ischemic colitis, ACS, pulmonary embolism, dissection, viral syndrome, infectious colitis, among others. Workup will be conducted with hematologic labs, CTA chest, abdomen, pelvis, urinalysis. Diarrhea panel will be obtained. Patient was given 1 L crystalloid in EMS and upon trying to obtain urinalysis no urine output, patient has slightly delayed capillary refill so 1 L crystalloid bolus will be administered in addition to this. Nursing adjusted In-N-Out catheter with immediate urine output. Initial work reviewed by me, no significant leukocytosis or actionable anemia, acid-base status has lactate of 4 that is being volume repleted, normal pH, her anion gap is 7 which is reassuring and makes me think that the lactate with normal VBG pH is erroneous given that the CO2 is 34 and essentially normal. Initial troponin undetectably low, no BEV or critical electrolyte abnormality. Urinalysis interpreted by me and not consistent with infection. CT abdomen pelvis no extravasation, mild sigmoid colitis. CTA chest no pulmonary embolism or aortic abnormality. The case was discussed with Dr. Hill regarding management, he recommends colonoscopy at this time. The case was discussed with Dr. Hollis and patient will be admitted to his service for continued evaluation at this time. Critical Care Critical Care Time Critical Care Time: No
[2024-01-12] MEDS: LACTATED RINGERS 1000ML 1,000 ML 999 ML IV (11:13)
[2024-01-12] MEDS: ACETAMINOPHEN 1,000MG/100ML VIAL 1000 MG IV (11:13)
[2024-01-12] MEDS: ONDANSETRON 4MG/2ML VIAL 4 MG IV (11:13)
[2024-01-12 11:17] LABS: Microscopic, Urine URINE MICROSCOPIC (MICROSCOPIC)
[2024-01-12 11:30] LABS: Appearance,Urine CLEAR (Clear); Blood, Urine TRACE-I (Negative); Color,Urine YELLOW (Yellow); Glucose,Urine (UA) Negative (Negative); Ketones,Urine 1+ (Negative); Leukocyte Esterase,Urine Negative (Negative); Nitrate,Urine Negative (Negative); Protein,Urine TRACE (Negative); Specific Gravity, Urine >= 1.030 (1.005-1.030); Urobilinogen,Urine 0.2 EU/dl (0.2)
[2024-01-12 11:33] LABS: Basophils % 0.6 % (0.1-2.0); Eosinophils # 0.1 K/mm3 (0.0-0.4); Eosinophils % 1.5 % (0.1-12.0); Hematocrit 41.6 % (37.0-47.0); Hemoglobin 13.8 g/dL (12.2-16.2); Lymphocytes # 0.9 K/mm3 (0.7-4.5); Mean Corpuscular HGB Conc 33.2 g/dL (31.8-35.4); Mean Corpuscular Hemoglobin 30.4 pg (27.0-31.2); Mean Corpuscular Volume 91.7 fl (81-99); Mean Platelet Volume 7.5 fl (7.4-10.4); Monocytes # 0.5 K/mm3 (0.1-1.0); Neutrophils # 5.3 K/mm3 (1.8-7.8); Neutrophils % 77.9 % (37.0-80.0); Platelet Count 189 K/mm3 (142-424); Red Blood Count 4.53 M/mm3 (4.20-5.40); Red Cell Distribution Width 13.7 % (11.5-17.5); White Blood Count 6.8 K/mm3 (4.8-10.8)
[2024-01-12 11:43] LABS: Bilirubin,Urine 1+ (Negative)
[2024-01-12 11:44] LABS: Bacteria,Urine Trace /lpf; RBC,Urine Occasional #/hpf (0-3); WBC,Urine Occasional #/hpf (0-3)
[2024-01-12 11:47] LABS: Albumin Level 3.7 g/dl (3.5-5.0); Chloride 108 mmol/L (98-107); Sodium 138 mmol/L (136-145)
[2024-01-12 11:49] LABS: Blood Urea Nitrogen 19 mg/dl (7-17); Creatinine Clearance Estimated 31 mL/min (50-200); Estimated Glomerular Filt Rate 95 ml/min (>60); GFR (African American) 116 ML/MIN (>60); Lipase 191 U/L (23-300)
[2024-01-12 11:50] LABS: Alanine Aminotransferase 33 U/L (12-78); Albumin/Globulin Ratio 1.2 (1.1-1.8); Alkaline Phosphatase 78 U/L (38-126); Aspartate Amino Transferase 40 U/L (14-36); Bilirubin,Total 0.8 mg/dl (0.2-1.3); Calcium 8.5 mg/dl (8.4-10.2); Carbon Dioxide 27 mmol/L (22.0-30.0); Globulin 3.1 g/dL (1.3-3.2); Glucose 116 mg/dl (74-100); Total Protein,Serum 6.8 g/dl (6.3-8.2)
[2024-01-12 12:02] LABS: Troponin I < 0.01 ng/ml (0.00-0.034)
[2024-01-12] MEDS: IOPAMIDOL-370 (76%);100ML BOTTLE 80 ML IV (12:05)
[2024-01-12] MEDS: 0.9 % SODIUM CHLORIDE 50 ML VIAL 40 ML IV (12:05)
[2024-01-12] MEDS: SODIUM CHLORIDE 0.9% 10ML SYR (RAD ONLY) 10 ML IV (12:05)
--- NOTE | 2024-01-12 12:12 | PC.NURSE ---
PT RETURNED FROM CT
[2024-01-12 12:16] LABS: HIV (1&2) Antibody Rapid NONREACTIVE (NONREACTIVE)
[2024-01-12 12:30] LABS: VBG Base Excess -6.8 mmol/L (-2.4-2.3); VBG HCO3 18.7 mmol/L (23-30); VBG Oxygen Saturation 95.9 % (50-70); VBG PCO2 33.7 mmol/L (35-51); VBG PH 7.36 mmol/L (7.31-7.41); VBG PO2 87.1 mmol/L (28-40); VBG Total CO2 19.7 mmol/L (23-27)
[2024-01-12 12:33] LABS: Lactate Venous 4.4 mmol/L (0.4-2.0)
--- NOTE | 2024-01-12 14:05 | PC.NURSE ---
Verbal consent obtained from sister Asha. Verified by Israel Clayton RN.
--- NOTE | 2024-01-12 14:05 | PC.NURSE ---
SOAP SUDS ENEMA GIVEN, PT ONLY TOLERATED SMALL AMOUNT
--- NOTE | 2024-01-12 14:06 | PC.NURSE ---
DR DALAL ACCEPTS PT FOR ADMISSION
--- NOTE | 2024-01-12 14:07 | PC.NURSE ---
[facility] COMPLIANCE SPECIALIST NOTIFIED OF ADMISSION
--- NOTE | 2024-01-12 14:46 | P.PNANES_ITS ---
[facility] Disclaimer: The information contained in this section may have been updated after the patient was seen, as this information can be updated by other users. Social History (Updated 05/22/22 @ 06:44 by Cordell Etienne MD (ED)) Smoking Status: Unknown if ever smoked alcohol intake: never current occupational status: retired Travel in the last 8 weeks: None household members: significant other housing: other caffeine: No [facility] Anesthesia Checklist Patient Identification Patient Identification: Arm Band Structural Data Admitted From: Emergency Dept Planned Operative Procedure/s: Flexible Sigmoidoscopy Consent for Planned Operative Procedure(s) Verified: Yes Verified Documents: Surgical Consent and History and Physical NPO Status Verified Time NPO: 00:00 Additional verifications Anesthesia Reactions: No Airway Assessment Mallampati Score:: Class II C-Spine Mobility Assessed: Yes TMJ Mobility Assessed: Yes Neurological Assessment Level of Consciousness: Awake and Inappropriate Anesthesia Plan Anesthesia Risk discussed: Yes Anesthesia Plan: Verified ASA Class: III Anesthesia Type: MAC Preoperative Comments Pre-Operative Comments: Pt has dementia. Hx obtained from chart
--- NOTE | 2024-01-12 14:56 | PC.NURSE ---
REPORT CALLED TO GAYE MENDOZA
--- NOTE | 2024-01-12 14:57 | EXP.HP ---
History of Present Illness *Admission Date: 01/12/24 *Reason for visit:: Bright red rectal bleeding/bloody diarrhea *History of present illness: Mrs. Krishna is an 83-year-old female who is here for diagnostic sigmoidoscopy secondary to bloody diarrhea. The examination is deemed medically necessary for colonoscopy. The patient has been seen, interviewed and examined prior to the procedure by both myself and the anesthesia provider. [facility] Disclaimer: The information contained in this section may have been updated after the patient was seen, as this information can be updated by other users. Social History (Updated 05/22/22 @ 06:44 by Cordell Etienne ([email or web address])MD) Smoking Status: Unknown if ever smoked alcohol intake: never current occupational status: retired Travel in the last 8 weeks: None household members: significant other housing: other caffeine: No Other Medical History Have you received the Flu Vaccine for this season: Yes Have you received the Pneumonia Vaccine: Yes Review of Systems Review of Systems Review of systems (narrative): Negative *Cardiovascular Comments: Negative *Gastrointestinal Comments: Negative *Genitourinary Comments: Negative *Musculoskeletal Comments: Negative *Neurologic Comments: Negative Meds Home Medications and Allergies Home Medications ?Medication ?Instructions ?Recorded ?Confirmed ?Type aspirin 81 mg chewable tablet 81 mg PO DAILY Heart disease 12/06/17 05/22/22 History atorvastatin 40 mg tablet 40 mg PO DAILY Cholesterol 05/22/22 05/22/22 History loratadine 10 mg tablet 10 mg PO DAILY Allergy symptoms 05/22/22 05/22/22 History mirabegron 50 mg tablet,extended 50 mg PO DAILY bladder 05/22/22 05/22/22 History release 24 hr (Myrbetriq) New Prescriptions to Start Prescriptions: Allergies Allergy/AdvReac Type Severity Reaction Status Date / Time No Known Allergies Allergy Verified 08/22/18 14:21 Exam Data for Last 24 hours Vital signs and Labs for Last 24 Hours: Temp Pulse Resp BP Pulse Ox O2 Del Method O2 Flow Rate 98.0 F 62 18 139/67 99 Nasal Cannula 5 01/12/24 14:19 01/12/24 14:19 01/12/24 14:19 01/12/24 14:19 01/12/24 13:01 01/12/24 14:52 01/12/24 14:52 Laboratory Results - last 24 hr 01/12/24 11:10: Urine Color Yellow, Urine Appearance Clear, Urine pH 6.0, Ur Specific [place] >= 1.030, Urine Protein Trace, Urine Glucose (UA) Negative, Urine Ketones 1+, Urine Blood Trace-i, Urine Nitrate Negative, Urine Bilirubin 1+ A, Urine Urobilinogen 0.2, Ur Leukocyte Esterase Negative, Urine RBC Occasional, Urine WBC Occasional, Ur Squamous Epith Cells 3-5, Urine Bacteria Trace 01/12/24 11:22: WBC 6.8, RBC 4.53, Hgb 13.8, Hct 41.6, MCV 91.7, MCH 30.4, MCHC 33.2, RDW 13.7, Plt Count 189, MPV 7.5, Neut % (Auto) 77.9, Lymph % (Auto) 13.0, [place] % (Auto) 7.0, Eos % (Auto) 1.5, Baso % (Auto) 0.6, Neut # (Auto) 5.3, Lymph # (Auto) 0.9, [place] # (Auto) 0.5, Eos # (Auto) 0.1, Baso # (Auto) 0.0, Sodium 138, Potassium 4.0, Chloride 108 H, Carbon Dioxide 27, Anion Gap 7.0, BUN 19 H, Creatinine 0.60, Estimated Creat Clear 31, Estimated GFR 95, Est GFR ( Amer) 116, Glucose 116 H, Calcium 8.5, Magnesium 2.0, Total Bilirubin 0.8, AST 40 H, ALT 33, Alkaline Phosphatase 78, Troponin I < 0.01, Total Protein 6.8, Albumin 3.7, Globulin 3.1, Albumin/Globulin Ratio 1.2, Lipase 191, HIV 1&2 Antibody Rapid Nonreactive 01/12/24 12:26: VBG pH 7.36, VBG pCO2 33.7 L, VBG pO2 87.1 H, VBG HCO3 18.7 L, VBG Total CO2 19.7 L, VBG O2 Saturation 95.9 H, VBG Base Excess -6.8 L, VBG Lactic Acid 4.4 H I & O for Last 24 hours: Intake & Output 01/09/24 01/10/24 01/11/24 01/12/24 23:59 23:59 23:59 23:59 Weight 100 lb *Routine HEENT Exam Head: Present normocephalic Eye: Present EOMI and PERRL ENT: Present mucous membranes moist *Routine Neck Exam Neck: Present supple *Routine Respiratory Exam Respiratory: Present CTA bilaterally *Routine Cardiovascular Exam Cardiovascular: Present RRR *Routine Abdominal Exam Abdominal: Present soft and normoactive bowel sounds; Absent tenderness *Routine Rectal Exam Rectal:: deferred *Routine Genitalia Exam Genitalia:: deferred *Routine Extremities Exam Extremities: Absent cyanosis, clubbing or edema *Routine Skin Exam Skin: Present warm; Absent rash *Routine Neurological Exam Neurological: Present alert and oriented X3 Assessment and Plan *Assessment and plan (1) Bloody diarrhea: Status: Acute Category: Medical Code(s): R19.7 - Diarrhea, unspecified (2) Acute lower gastrointestinal bleeding: Status: Acute Category: Medical Code(s): K92.2 - Gastrointestinal hemorrhage, unspecified Plan A/P: 1. Bloody diarrhea is the preprocedural diagnosis. The patient will be anesthetized/sedated using MAC sedation. The patient has been seen and examined. Cardiac and lung assessment prior to the examination is stable. Proceed with planned colonoscopy
--- NOTE | 2024-01-12 15:10 | P.PCN_ITS ---
[facility] Procedure Note Date: 01/12/24 Time: 15:11 Procedure Note:: Colonoscopy (to hepatic flexure) procedure Report: Colonoscopy with cold biopsies Endoscopist: Musa Hill II, MD Referring physician: Salvador Peres MD Date of Procedure: January 12, 2024 Equipment: Olympus 190 variable stiffness pediatric colonoscope Sedation: MAC sedation Indication: Mrs. Krishna is an 83-year-old female who is here through the ER secondary to bloody diarrhea. The patient reports frequent diarrhea over the last couple of years but more recently has had bloody diarrhea for the last 3 to 4 days. She has had abdominal discomfort. If she has had several abdominal surgeries that the patient is a poor historian. The patient did have C. difficile previously. Her last colonoscopy was many years ago. Hemoglobin and hematocrit in the emergency department today were not the colon (globin 13.8 and hematocrit 41.6). I did speak with ED/Dr. Peres and agreed to sigmoidoscopy/extended colonoscopy after administration of soapsuds enemas. Procedure: Prior to the procedure, a history and physical exam was performed, and patient's medications and allergies were reviewed. The risks, benefits and alternatives of the sedation and procedure were discussed with the patient. All questions were answered and informed consent was obtained. The patient was brought to the procedure room. Patient identification and proposed procedure were verified by the physician and the nurse. The patient was placed in a left lateral decubitus position and the scope was passed under direct vision. Throughout the procedure, the patient's blood pressure, pulse, and oxygen saturations were monitored continuously. The colonoscopy was accomplished without difficulty. The patient tolerated the procedure well. Findings: On digital rectal examination there was normal rectal tone. There were no external hemorrhoids, fissures or fistulas. The scope was then inserted through the anal canal into the rectum and advanced to the hepatic flexure. The preparation was very poor beyond the splenic flexure. However, there were pseudomembranes identified in the transverse and descending colon suggestive of pseudomembranous colitis. Cold biopsies were obtained. There was no evidence of any mucosal erythema, edema, granularity or ulceration. There was no evidence of colitis. There were extensive diverticuli throughout the descending and sigmoid colon. Upon retroflexion within the rectum there were grade 2 internal hemorrhoids with some active cryptitis. There was a small 3 to 4 mm polyp in the distal rectum that was removed via cold biopsy. Impression: 1. Pseudomembranes in transverse and descending colon?rule out pseudomembranous colitis/C. difficile colitis 2. Grade 2 internal hemorrhoids with active cryptitis 3. Extensive left-sided diverticulosis 4. Diminutive rectal polyp Plan: I do suspect that the diarrhea may be secondary to C. difficile colitis and I would like for her to have PCR stool testing and C. difficile stool toxin for confirmation. I suspect that the bleeding was hemorrhoidal. I will check the biopsies and order PCR panel.
--- NOTE | 2024-01-12 15:50 | HMH.PHAINT1 ---
Pharmacy Intervention Comments: MEDICATION RECONCILIATION COMPLETED ON PATIENT USING EXTERNAL FILL HISTORY FROM PHARMACY. -TU CARR, ZENYD
[2024-01-12 16:33] LABS: Reflex Lactic Add Lactic Reflex
--- NOTE | 2024-01-12 16:55 | EXP.HP ---
History of Present Illness *Admission Date: 01/12/24 *Reason for visit:: Abdominal pain, bloody stool *History of present illness: Ms. Krishna is an 83-year-old female with with history of mild cognitive impairment, lives in a house right next to her son. Was brought in by EMS after her son called due to her having diarrhea today and poor p.o. intake for the past 3 to 4 days. States that she had some blood in her stool. She has been more tired and fatigued. Workup in the ER with concern for previous history of C. difficile, hypertension, previous pancreatitis. Labs on presentation relatively normal with white count of 6.8. Kidney function at baseline with BUN 19, creatinine 0.6. Patient states she has been having stool for several days. Imaging of abdomen showed concern for sigmoid colitis. GI was consulted and she was taken urgently for sigmoidoscopy. Patient is a poor historian and unable to give much history. Medicine was consulted for admission after sigmoidoscopy Difficult time getting history from patient, does not know why she came to the hospital after having been transferred from the ER to scope suite to the floor. Just know she does not feel bad. Can tell me her name. Does not know the city. States she lives with her son but he is the house next-door per his report in the ER. Pleasant on exam but unable to provide much history to current situation. [facility] Disclaimer: The information contained in this section may have been updated after the patient was seen, as this information can be updated by other users. Medical History Diarrhea Colitis Social History Smoking Status: Unknown if ever smoked alcohol intake: never current occupational status: retired Travel in the last 8 weeks: None household members: significant other housing: other caffeine: No Other Medical History Have you received the Flu Vaccine for this season: No (pt confused, unable to remember) Have you received the Pneumonia Vaccine: No (pt confused, unable to remember) Review of Systems Review of Systems Review of systems:: unable to obtain Review of systems (narrative): Patient is a poor historian Meds Home Medications and Allergies Home Medications ?Medication ?Instructions ?Recorded ?Confirmed ?Type aspirin 81 mg chewable tablet 81 mg PO DAILY 12/06/17 01/12/24 History atorvastatin 40 mg tablet 40 mg PO DAILY 05/22/22 01/12/24 History citalopram 10 mg tablet 10 mg PO DAILY 01/12/24 01/12/24 History ergocalciferol (vitamin D2) 1,250 50,000 unit PO WEEKLY 01/12/24 01/12/24 History mcg (50,000 unit) capsule (Vitamin D2) New Prescriptions to Start Prescriptions: Allergies Allergy/AdvReac Type Severity Reaction Status Date / Time No Known Allergies Allergy Verified 08/22/18 14:21 Exam Data for Last 24 hours Vital signs and Labs for Last 24 Hours: Temp Pulse Resp BP Pulse Ox O2 Del Method O2 Flow Rate 97.7 F 51 L 18 122/52 L 99 Room Air 5 01/12/24 15:17 01/12/24 15:34 01/12/24 15:34 01/12/24 15:34 01/12/24 15:34 01/12/24 15:34 01/12/24 14:52 Laboratory Results - last 24 hr 01/12/24 11:10: Urine Color Yellow, Urine Appearance Clear, Urine pH 6.0, Ur Specific [place] >= 1.030, Urine Protein Trace, Urine Glucose (UA) Negative, Urine Ketones 1+, Urine Blood Trace-i, Urine Nitrate Negative, Urine Bilirubin 1+ A, Urine Urobilinogen 0.2, Ur Leukocyte Esterase Negative, Urine RBC Occasional, Urine WBC Occasional, Ur Squamous Epith Cells 3-5, Urine Bacteria Trace 01/12/24 11:22: WBC 6.8, RBC 4.53, Hgb 13.8, Hct 41.6, MCV 91.7, MCH 30.4, MCHC 33.2, RDW 13.7, Plt Count 189, MPV 7.5, Neut % (Auto) 77.9, Lymph % (Auto) 13.0, [place] % (Auto) 7.0, Eos % (Auto) 1.5, Baso % (Auto) 0.6, Neut # (Auto) 5.3, Lymph # (Auto) 0.9, [place] # (Auto) 0.5, Eos # (Auto) 0.1, Baso # (Auto) 0.0, Sodium 138, Potassium 4.0, Chloride 108 H, Carbon Dioxide 27, Anion Gap 7.0, BUN 19 H, Creatinine 0.60, Estimated Creat Clear 31, Estimated GFR 95, Est GFR ( Amer) 116, Glucose 116 H, Calcium 8.5, Magnesium 2.0, Total Bilirubin 0.8, AST 40 H, ALT 33, Alkaline Phosphatase 78, Troponin I < 0.01, Total Protein 6.8, Albumin 3.7, Globulin 3.1, Albumin/Globulin Ratio 1.2, Lipase 191, HIV 1&2 Antibody Rapid Nonreactive 01/12/24 12:26: VBG pH 7.36, VBG pCO2 33.7 L, VBG pO2 87.1 H, VBG HCO3 18.7 L, VBG Total CO2 19.7 L, VBG O2 Saturation 95.9 H, VBG Base Excess -6.8 L, VBG Lactic Acid 4.4 H I & O for Last 24 hours: Intake & Output 01/09/24 01/10/24 01/11/24 01/12/24 23:59 23:59 23:59 23:59 Weight 53.694 kg Constitutional Constitutional: no acute distress, thin, chronically ill appearing and cooperative *Routine HEENT Exam Head: Present normocephalic Eye: Present EOMI and PERRL ENT: Present mucous membranes moist *Routine Neck Exam Neck: Present supple *Routine Respiratory Exam Respiratory: Present CTA bilaterally *Routine Cardiovascular Exam Cardiovascular: Present RRR *Routine Abdominal Exam Abdominal: Present soft, normoactive bowel sounds and tenderness (Mild, nonfocal, mainly in the lower abdomen); Absent distended or rebound *Routine Rectal Exam Rectal:: deferred *Routine Genitalia Exam Genitalia:: deferred *Routine Extremities Exam Extremities: Absent cyanosis, clubbing or edema *Routine Skin Exam Skin: Present warm; Absent rash *Routine Neurological Exam Neurological: Present alert and moving all extremities; Absent altered mental status Comments: Alert and oriented to person Assessment and Plan *Assessment and plan (1) Acute lower gastrointestinal bleeding: Status: Acute Category: Medical Code(s): K92.2 - Gastrointestinal hemorrhage, unspecified (2) Abdominal pain: Status: Acute Category: Medical Code(s): R10.9 - Unspecified abdominal pain (3) Bloody diarrhea: Status: Acute Category: Medical Code(s): R19.7 - Diarrhea, unspecified (4) Essential hypertension: Status: Chronic Category: Medical Code(s): I10 - Essential (primary) hypertension (5) Diverticulosis: Status: Acute Category: Medical Code(s): K57.90 - Diverticulosis of intestine, part unspecified, without perforation or abscess without bleeding (6) Mild cognitive impairment: Status: Acute Category: Medical Code(s): G31.84 - Mild cognitive impairment of uncertain or unknown etiology Plan 83-year-old female with mild cognitive impairment who presented with worsening GI symptoms over the past 3 to 4 days. Concern for some bloody diarrhea. Workup in the ER concerning for colitis. Discussed case with ER physician, request admission for monitoring after sigmoidoscopy and for further treatment. I agreed to admit for further management. Per review of sigmoidoscopy note, concern for pseudomembranous state in her colon, significant left-sided diverticulosis. Will initiate empirically on p.o. vancomycin. Reportedly has a history of C. difficile but this was obtained from the son while in the ER not from the patient. Stool panel pending. Problems addressed as follows: Acute lower GI bleeding Bloody diarrhea Abdominal pain Pseudomembranous colitis - White count normal at 6.8, hemoglobin normal at 14. Repeat CBC, CMP, magnesium ordered for the morning. No signs of BEV with BUN 19, creatinine 0.6. Electrolytes normal with potassium 4.0. -GI consulted, taken for sigmoidoscopy. Found to have pseudomembranes in transverse and descending colon. Also found to have extensive left-sided diverticulosis. -Will initiate empiric treatment with p.o. vancomycin 125 mg every 6 hours. Diarrhea panel/PCR pending -Repeat CBC, CMP, magnesium ordered for the morning -Per my review of CT, has inflammation of the sigmoid colon Anxiety: Continue citalopram 10 mg daily Hyperlipidemia: Continue Lipitor 10 mg daily Will hold aspirin in the setting of bloody diarrhea Mild cognitive impairment complicates all aspects of her care. Will attempt to keep patient oriented and continue with a night routine. Regular nursing interaction. Monitor for delirium or worsening confusion Full code Mechanical soft diet Anticoagulation contraindicated in the setting of GI bleed
[2024-01-12] MEDS: VANCOMYCIN HCL 50MG/ML 150ML KIT 125 MG PO ×2 (17:17→20:24)
[2024-01-12 18:09] LABS: Adenovirus F 40/41, stool Not Detected (NotDetected); Astrovirus Not Detected (NotDetected); Campylobacter Not Detected (NotDetected); Cryptosporidium Not Detected (NotDetected); Cyclospora Cayetanesis Not Detected (NotDetected); Entamoeba histolytica Not Detected (NotDetected); Enteropathogenic E coli Not Detected (NotDetected); Giardia lamblia Not Detected (NotDetected); Norovirus Not Detected (NotDetected); Plesimonas Shigalloides, PCR Not Detected (NotDetected); Rotavirus A Not Detected (NotDetected); Salmonella, PCR Not Detected (NotDetected); Sapovirus Not Detected (NotDetected); Shiga-like toxin E coli Not Detected (NotDetected); Shigella Enterovasive E coli Not Detected (NotDetected); Vibrio Cholerae Not Detected (NotDetected); Vibrio, PCR Not Detected (NotDetected); Yersinia Entercolitica, PCR Not Detected (NotDetected)
[2024-01-12] MEDS: ATORVASTATIN 40MG TABLET 40 MG PO (20:23)
[2024-01-12 20:35] LABS: Clostridium Difficile A/B, PCR Detected (NotDetected)
[2024-01-12 20:36] LABS: Enteroaggregative E coli Detected (NotDetected); Enterotoxigenic E coli Not Detected (NotDetected)
[2024-01-13] VITALS: BP 132/61; PULSE 75; RESP 16; TEMP 36.6; O2SAT 98
[2024-01-13 04:00] VITALS: BP 117/40; PULSE 63; RESP 18; TEMP 36.7; O2SAT 100; BMI 20.5
[2024-01-13 05:56] LABS: HCV Ab Non Reactive (Non Reactive)
[2024-01-13 06:50] LABS: Basophils % 0.5 % (0.1-2.0); Eosinophils # 0.1 K/mm3 (0.0-0.4); Hematocrit 41.3 % (37.0-47.0); Hemoglobin 13.5 g/dL (12.2-16.2); Lymphocytes # 1.1 K/mm3 (0.7-4.5); Lymphocytes % 19.1 % (10-50); Mean Corpuscular HGB Conc 32.7 g/dL (31.8-35.4); Mean Corpuscular Hemoglobin 29.9 pg (27.0-31.2); Mean Corpuscular Volume 91.4 fl (81-99); Mean Platelet Volume 7.4 fl (7.4-10.4); Monocytes # 0.4 K/mm3 (0.1-1.0); Monocytes % 6.7 % (1.7-9.3); Neutrophils # 4.2 K/mm3 (1.8-7.8); Neutrophils % 71.6 % (37.0-80.0); Platelet Count 204 K/mm3 (142-424); Red Blood Count 4.52 M/mm3 (4.20-5.40); Red Cell Distribution Width 13.7 % (11.5-17.5); White Blood Count 5.8 K/mm3 (4.8-10.8)
[2024-01-13 06:55] LABS: Albumin Level 3.2 g/dl (3.5-5.0); Chloride 106 mmol/L (98-107); Potassium 3.5 mmoL/L (3.5-5.1); Sodium 139 mmol/L (136-145)
[2024-01-13 06:57] LABS: Alanine Aminotransferase 29 U/L (12-78); Aspartate Amino Transferase 33 U/L (14-36); Blood Urea Nitrogen 8 mg/dl (7-17); Creatinine Clearance Estimated 37 mL/min (50-200); Estimated Glomerular Filt Rate 95 ml/min (>60); GFR (African American) 116 ML/MIN (>60)
[2024-01-13 06:58] LABS: Albumin/Globulin Ratio 1.1 (1.1-1.8); Alkaline Phosphatase 77 U/L (38-126); Anion Gap 8.5 mEq/L (5-15); Bilirubin,Total 0.7 mg/dl (0.2-1.3); Calcium 8.4 mg/dl (8.4-10.2); Carbon Dioxide 28 mmol/L (22.0-30.0); Glucose 98 mg/dl (74-100); Magnesium 1.8 mg/dl (1.6-2.3); Total Protein,Serum 6.2 g/dl (6.3-8.2)
[2024-01-13 08:00] VITALS: BP 103/48; PULSE 74; RESP 16; TEMP 36.7; O2SAT 100
[2024-01-13] MEDS: VANCOMYCIN HCL 50MG/ML 150ML KIT 125 MG PO ×2 (08:32→12:25)
[2024-01-13] MEDS: CITALOPRAM 10MG TABLET 10 MG PO (08:32)
--- NOTE | 2024-01-13 09:34 | EXP.DC.SUM ---
General Admission date:: 01/12/24 Discharge date: 01/13/24 HPI HPI HPI: Ms. Krishna is an 83-year-old female with with history of mild cognitive impairment, lives in a house right next to her son. Was brought in by EMS after her son called due to her having diarrhea today and poor p.o. intake for the past 3 to 4 days. States that she had some blood in her stool. She has been more tired and fatigued. Workup in the ER with concern for previous history of C. difficile, hypertension, previous pancreatitis. Labs on presentation relatively normal with white count of 6.8. Kidney function at baseline with BUN 19, creatinine 0.6. Patient states she has been having stool for several days. Imaging of abdomen showed concern for sigmoid colitis. GI was consulted and she was taken urgently for sigmoidoscopy. Patient is a poor historian and unable to give much history. Medicine was consulted for admission after sigmoidoscopy Difficult time getting history from patient, does not know why she came to the hospital after having been transferred from the ER to scope suite to the floor. Just know she does not feel bad. Can tell me her name. Does not know the city. States she lives with her son but he is the house next-door per his report in the ER. Pleasant on exam but unable to provide much history to current situation. Hospital Course Hospital Course Hospital Course: 83-year-old female with mild cognitive impairment who presented with worsening GI symptoms over the past 3 to 4 days. Concern for some bloody diarrhea. Workup in the ER concerning for colitis. Discussed case with ER physician, request admission for monitoring after sigmoidoscopy and for further treatment. I agreed to admit for further management. Per review of sigmoidoscopy note, concern for pseudomembranous state in her colon, significant left-sided diverticulosis. Found to be C. difficile positive. Was initiated on oral vancomycin. Will complete 10 days of therapy. Stable to discharge home after evaluation by therapy. Problems addressed as follows: C. difficile colitis Acute lower GI bleed Bloody diarrhea Abdominal pain Pseudomembranous colitis - White count normal at 6.8, hemoglobin normal at 14. Repeat labs on morning of discharge the same. No elevation in white count. Kidney function normal. Tolerating p.o. intake. GI was consulted and taken for sigmoidoscopy. Found to have pseudomembranous colitis in transverse and descending colon. Also has significant left-sided diverticulosis. No signs of diverticulitis. Stool panel positive for C. difficile and E. coli. Initiated on oral vancomycin. Complete 10 days at 125 mg every 6 hours. Therapy evaluated patient on morning of discharge, independently mobile. Stable to discharge home with home health to assist with evaluation at home to help maintain independence with ADLs. Anxiety: Continue citalopram 10 mg daily Hyperlipidemia: Continue Lipitor 10 mg daily -Continue to hold on aspirin in the setting of bloody diarrhea Mild cognitive impairment complicates all aspects of her care. No disorientation or delirium during hospitalization. Exam Data for Last 24 hours Vital signs and Labs for Last 24 Hours: Temp Pulse Resp BP Pulse Ox O2 Del Method O2 Flow Rate 98.0 F 74 16 103/48 L 100 Room Air 5 01/13/24 08:00 01/13/24 08:00 01/13/24 08:00 01/13/24 08:00 01/13/24 08:00 01/13/24 08:00 01/12/24 14:52 Laboratory Results - last 24 hr 01/12/24 11:10: Urine Color Yellow, Urine Appearance Clear, Urine pH 6.0, Ur Specific [place] >= 1.030, Urine Protein Trace, Urine Glucose (UA) Negative, Urine Ketones 1+, Urine Blood Trace-i, Urine Nitrate Negative, Urine Bilirubin 1+ A, Urine Urobilinogen 0.2, Ur Leukocyte Esterase Negative, Urine RBC Occasional, Urine WBC Occasional, Ur Squamous Epith Cells 3-5, Urine Bacteria Trace 01/12/24 11:22: WBC 6.8, RBC 4.53, Hgb 13.8, Hct 41.6, MCV 91.7, MCH 30.4, MCHC 33.2, RDW 13.7, Plt Count 189, MPV 7.5, Neut % (Auto) 77.9, Lymph % (Auto) 13.0, [place] % (Auto) 7.0, Eos % (Auto) 1.5, Baso % (Auto) 0.6, Neut # (Auto) 5.3, Lymph # (Auto) 0.9, [place] # (Auto) 0.5, Eos # (Auto) 0.1, Baso # (Auto) 0.0, Sodium 138, Potassium 4.0, Chloride 108 H, Carbon Dioxide 27, Anion Gap 7.0, BUN 19 H, Creatinine 0.60, Estimated Creat Clear 31, Estimated GFR 95, Est GFR ( Amer) 116, Glucose 116 H, Calcium 8.5, Magnesium 2.0, Total Bilirubin 0.8, AST 40 H, ALT 33, Alkaline Phosphatase 78, Troponin I < 0.01, Total Protein 6.8, Albumin 3.7, Globulin 3.1, Albumin/Globulin Ratio 1.2, Lipase 191, Hepatitis C Antibody Non reactive, HIV 1&2 Antibody Rapid Nonreactive 01/12/24 12:26: VBG pH 7.36, VBG pCO2 33.7 L, VBG pO2 87.1 H, VBG HCO3 18.7 L, VBG Total CO2 19.7 L, VBG O2 Saturation 95.9 H, VBG Base Excess -6.8 L, VBG Lactic Acid 4.4 H 01/12/24 17:07: Lactate 1.0 01/12/24 : Stl Aeromonas (PCR) Not detected, Stl C. cayetanensis PCR Not detected, Stool Rotavirus (PCR) Not detected, Stl Adenov F 40/41 PCR Not detected, Stool Astrovirus (PCR) Not detected, Stool Campylobacter PCR Not detected, Stl C.difficile Tox PCR Detected A, Stool Cryptosporidium PCR Not detected, Stl E.coli Shiga Tox PCR Not detected, Stool E coli O157 PCR Not detected, Stl Enterotoxigenic E PCR Not detected, Stool EPEC (PCR) Not detected, Stool EAEC (PCR) Detected A, Stl E. histolytica PCR Not detected, Stool Giardia Lamblia PCR Not detected, Stool Salmonella PCR Not detected, Stool Sapovirus (PCR) Not detected, Stl P. shigelloides PCR Not detected, Stl Shigella/EIEC PCR Not detected, St Y.enterocolitica PCR Not detected, Stool Vibrio (PCR) Not detected, Stl Vibrio cholerae PCR Not detected, Stl Norovirus GI/GII PCR Not detected 01/13/24 05:34: WBC 5.8, RBC 4.52, Hgb 13.5, Hct 41.3, MCV 91.4, MCH 29.9, MCHC 32.7, RDW 13.7, Plt Count 204, MPV 7.4, Neut % (Auto) 71.6, Lymph % (Auto) 19.1, [place] % (Auto) 6.7, Eos % (Auto) 2.0, Baso % (Auto) 0.5, Neut # (Auto) 4.2, Lymph # (Auto) 1.1, [place] # (Auto) 0.4, Eos # (Auto) 0.1, Baso # (Auto) 0.0, Sodium 139, Potassium 3.5, Chloride 106, Carbon Dioxide 28, Anion Gap 8.5, BUN 8 D, Creatinine 0.60, Estimated Creat Clear 37, Estimated GFR 95, Est GFR ( Amer) 116, Glucose 98, Calcium 8.4, Magnesium 1.8, Total Bilirubin 0.7, AST 33, ALT 29, Alkaline Phosphatase 77, Total Protein 6.2 L, Albumin 3.2 L D, Globulin 3.0, Albumin/Globulin Ratio 1.1 I & O for Last 24 hours: Intake & Output 01/10/24 01/11/24 01/12/24 01/13/24 23:59 23:59 23:59 23:59 Intake Total 120 / 360 360 / 360 Output Total 300 / 300 200 / 200 Balance -180 / 60 160 / 160 Weight 53.694 kg 54.386 kg Constitutional Constitutional: no acute distress, average body habitus and cooperative *Routine HEENT Exam Head: Present normocephalic Eye: Present EOMI and PERRL ENT: Present mucous membranes moist *Routine Neck Exam Neck: Present supple; Absent lymphadenopathy *Routine Respiratory Exam Respiratory: Present CTA bilaterally; Absent rhonchi, wheezes or crackles *Routine Cardiovascular Exam Cardiovascular: Present RRR *Routine Abdominal Exam Abdominal: Present soft and normoactive bowel sounds; Absent tenderness *Routine Rectal Exam Patient deferred: visual exam *Routine Exam Patient deferred: external exam *Routine Extremities Exam Extremities: Absent cyanosis, clubbing or edema *Routine Skin Exam Skin: Present warm; Absent rash *Routine Neurological Exam Neurological: Present alert and moving all extremities; Absent altered mental status Comments: Oriented to self and place. Mild impairment with pleasant confusion. Results Data Completed and Pending Labs on day of discharge: Labs from last 24 hours 01/13/24 01/12/24 01/12/24 05:34 Unknown 17:07 WBC 5.8 RBC 4.52 Hgb 13.5 Hct 41.3 MCV 91.4 MCH 29.9 MCHC 32.7 RDW 13.7 Plt Count 204 MPV 7.4 Neut % (Auto) 71.6 Lymph % (Auto) 19.1 [place] % (Auto) 6.7 Eos % (Auto) 2.0 Baso % (Auto) 0.5 Neut # (Auto) 4.2 Lymph # (Auto) 1.1 [place] # (Auto) 0.4 Eos # (Auto) 0.1 Baso # (Auto) 0.0 VBG pH VBG pCO2 VBG pO2 VBG HCO3 VBG Total CO2 VBG O2 Saturation VBG Base Excess VBG Lactic Acid Sodium 139 Potassium 3.5 Chloride 106 Carbon Dioxide 28 Anion Gap 8.5 BUN 8 D Creatinine 0.60 Estimated Creat Clear 37 Estimated GFR 95 Est GFR ( Amer) 116 Glucose 98 Lactate 1.0 Calcium 8.4 Magnesium 1.8 Total Bilirubin 0.7 AST 33 ALT 29 Alkaline Phosphatase 77 Troponin I Total Protein 6.2 L Albumin 3.2 L D Globulin 3.0 Albumin/Globulin Ratio 1.1 Lipase Urine Color Urine Appearance Urine pH Ur Specific [place] Urine Protein Urine Glucose (UA) Urine Ketones Urine Blood Urine Nitrate Urine Bilirubin Urine Urobilinogen Ur Leukocyte Esterase Urine RBC Urine WBC Ur Squamous Epith Cells Urine Bacteria Stl Aeromonas (PCR) Not detected Stl C. cayetanensis PCR Not detected Stool Rotavirus (PCR) Not detected Stl Adenov F 40/41 PCR Not detected Stool Astrovirus (PCR) Not detected Stool Campylobacter PCR Not detected Stl C.difficile Tox PCR Detected A Stool Cryptosporidium PCR Not detected Stl E.coli Shiga Tox PCR Not detected Stool E coli O157 PCR Not detected Stl Enterotoxigenic E PCR Not detected Stool EPEC (PCR) Not detected Stool EAEC (PCR) Detected A Stl E. histolytica PCR Not detected Stool Giardia Lamblia PCR Not detected Stool Salmonella PCR Not detected Stool Sapovirus (PCR) Not detected Stl P. shigelloides PCR Not detected Stl Shigella/EIEC PCR Not detected St Y.enterocolitica PCR Not detected Stool Vibrio (PCR) Not detected Stl Vibrio cholerae PCR Not detected Stl Norovirus GI/GII PCR Not detected Hepatitis C Antibody HIV 1&2 Antibody Rapid 01/12/24 01/12/24 01/12/24 12:26 11:22 11:10 WBC 6.8 RBC 4.53 Hgb 13.8 Hct 41.6 MCV 91.7 MCH 30.4 MCHC 33.2 RDW 13.7 Plt Count 189 MPV 7.5 Neut % (Auto) 77.9 Lymph % (Auto) 13.0 [place] % (Auto) 7.0 Eos % (Auto) 1.5 Baso % (Auto) 0.6 Neut # (Auto) 5.3 Lymph # (Auto) 0.9 [place] # (Auto) 0.5 Eos # (Auto) 0.1 Baso # (Auto) 0.0 VBG pH 7.36 VBG pCO2 33.7 L VBG pO2 87.1 H VBG HCO3 18.7 L VBG Total CO2 19.7 L VBG O2 Saturation 95.9 H VBG Base Excess -6.8 L VBG Lactic Acid 4.4 H Sodium 138 Potassium 4.0 Chloride 108 H Carbon Dioxide 27 Anion Gap 7.0 BUN 19 H Creatinine 0.60 Estimated Creat Clear 31 Estimated GFR 95 Est GFR ( Amer) 116 Glucose 116 H Lactate Calcium 8.5 Magnesium 2.0 Total Bilirubin 0.8 AST 40 H ALT 33 Alkaline Phosphatase 78 Troponin I < 0.01 Total Protein 6.8 Albumin 3.7 Globulin 3.1 Albumin/Globulin Ratio 1.2 Lipase 191 Urine Color Yellow Urine Appearance Clear Urine pH 6.0 Ur Specific [place] >= 1.030 Urine Protein Trace Urine Glucose (UA) Negative Urine Ketones 1+ Urine Blood Trace-i Urine Nitrate Negative Urine Bilirubin 1+ A Urine Urobilinogen 0.2 Ur Leukocyte Esterase Negative Urine RBC Occasional Urine WBC Occasional Ur Squamous Epith Cells 3-5 Urine Bacteria Trace Stl Aeromonas (PCR) Stl C. cayetanensis PCR Stool Rotavirus (PCR) Stl Adenov F 40/41 PCR Stool Astrovirus (PCR) Stool Campylobacter PCR Stl C.difficile Tox PCR Stool Cryptosporidium PCR Stl E.coli Shiga Tox PCR Stool E coli O157 PCR Stl Enterotoxigenic E PCR Stool EPEC (PCR) Stool EAEC (PCR) Stl E. histolytica PCR Stool Giardia Lamblia PCR Stool Salmonella PCR Stool Sapovirus (PCR) Stl P. shigelloides PCR Stl Shigella/EIEC PCR St Y.enterocolitica PCR Stool Vibrio (PCR) Stl Vibrio cholerae PCR Stl Norovirus GI/GII PCR Hepatitis C Antibody Non reactive HIV 1&2 Antibody Rapid Nonreactive DS: Diagnosis Discharge Diagnosis (1) C. difficile colitis: Status: Acute Code(s): A04.72 - Enterocolitis due to Clostridium difficile, not specified as recurrent (2) Acute lower gastrointestinal bleeding: Status: Acute Code(s): K92.2 - Gastrointestinal hemorrhage, unspecified (3) Abdominal pain: Status: Acute Code(s): R10.9 - Unspecified abdominal pain (4) Bloody diarrhea: Status: Acute Code(s): R19.7 - Diarrhea, unspecified (5) Essential hypertension: Status: Chronic Code(s): I10 - Essential (primary) hypertension (6) Diverticulosis: Status: Acute Code(s): K57.90 - Diverticulosis of intestine, part unspecified, without perforation or abscess without bleeding (7) Mild cognitive impairment: Status: Acute Code(s): G31.84 - Mild cognitive impairment of uncertain or unknown etiology Meds Home Medications and Allergies Home Medications ?Medication ?Instructions ?Recorded ?Confirmed ?Type atorvastatin 40 mg tablet 40 mg PO DAILY 05/22/22 01/12/24 History citalopram 10 mg tablet 10 mg PO DAILY 01/12/24 01/12/24 History ergocalciferol (vitamin D2) 1,250 50,000 unit PO WEEKLY 01/12/24 01/12/24 History mcg (50,000 unit) capsule (Vitamin D2) vancomycin 50 mg/mL oral solution 125 mg (2.5 mL) PO QID 9 days #0 mL 01/13/24 Rx (Firvanq) New Prescriptions to Start Prescriptions: Allergies Allergy/AdvReac Type Severity Reaction Status Date / Time No Known Allergies Allergy Verified 08/22/18 14:21 Discharge Plan Disposition Patient Disposition: Home Health Service Condition: Fair Discharge Order Discharge Orders: Discharge Order (Routine); Ordered 01/13/24 Ordered By: Tommie Hollis Follow up Plan Follow up with: Musa Hill II, MD [Staff Physician] - 02/07/24 2:00 pm ProviderGlynn MD [Primary Care Provider] - Enter time for follow up (please make appointment with pcp) Prescriptions/Medication Reconciliation: New vancomycin [Firvanq] 50 mg/mL Recon Soln 125 mg PO QID 9 Days Qty: 0 0RF Rx Instructions: please send home bottle from admission with pt. Continued citalopram 10 mg tablet 10 mg PO DAILY ergocalciferol (vitamin D2) [Vitamin D2] 1,250 mcg (50,000 unit) capsule 50,000 unit PO WEEKLY atorvastatin 40 mg tablet 40 mg PO DAILY Discontinued aspirin 81 MG tablet,chewable 81 mg PO DAILY Problem Reconciliation Problems Reviewed?: Yes Patient Discharge Instructions ACTIVITY: Continue current activity DIET: continue same diet Patient Instructions: DI for Abdominal Pain-Adult Print Language: Hungarian Providers Primary Care Provider: Provider,Referral Admit Provider: Tommie Hollis Attending Provider: Tommie Hollis
--- NOTE | 2024-01-13 09:48 | HMH.OTEV ---
OT Inpatient Evaluation Rehab OT IP Evaluation Start: 01/13/24 08:20 Freq: ONCE Status: Active Protocol: Document 01/13/24 09:36 [facility] (Rec: 01/13/24 09:48 [facility] [id number]) Rehab OT IP Assessment Subjective History Pt oriented x2 on arrival. Pt agreeable to engage in evaluation. Pt was admitted to [facility] on 01/12/24 due to abdominal pain and bloody stool. Pt history and physical report : Ms. Krishna is an 83-year-old female with with history of mild cognitive impairment, lives in a house right next to her son. Was brought in by EMS after her son called due to her having diarrhea today and poor p.o. intake for the past 3 to 4 days. States that she had some blood in her stool. She has been more tired and fatigued. Workup in the ER with concern for previous history of C. difficile, hypertension, previous pancreatitis. Labs on presentation relatively normal with white count of 6.8 . Kidney function at baseline with BUN 19, creatinine 0.6. Patient states she has been having stool for several days. Imaging of abdomen showed concern for sigmoid colitis. GI was consulted and she was taken urgently for sigmoidoscopy. Patient is a poor historian and unable to give much history. Medicine was consulted for admission after sigmoidoscopy Difficult time getting history from patient, does not know why she came to the hospital after having been transferred from the ER to scope suite to the floor. Just know she does not feel bad. Can tell me her name. Does not know the city. States she lives with her son but he is the house next-door per his report in the ER. Pleasant on exam but unable to provide much history to current situation. Subjective Prior to admission to hospital , pt reports living at home alone. Pt reports that her son lives in a separate house on the same property. Pt reports being independent with ADL of dressing and that she requires some assistance with bathing. Pt reports being independent with IADLs such as cooking and cleaning. Pt uses a cane during functional transfers. Pt no longer engages in driving. Objective Patient Orientation Name,Age Right Upper Extremity Gross ROM WFL Left Upper Extremity Gross ROM WFL Bed Mobility bed mobility-scooting,bed mobility - supine/sit Assist Level Supervision/Stand by Transfer Training Sit/Stand Transfer Assist Level Supervision/Stand by Overall Commode/Toilet Transfer Ability Standby Assistance Commode/Toilet Transfer Technique Sit to/from Ambulatory Commode/Toilet Transfer Assistive Grab Bars Devices Rehab OT IP prob,goals,plan Problems Date of Evaluation: 01/13/24 Rehab Potential Rehab Potential Innapropriate for Skilled Therapy Discharge Plan OT Discharge Plan Pt appears to be at baseline with occupational performance and will not continue to be seen at [facility] for services. Once medically stable, pt could return living at home. Upon returning home, pt would benefit most from a evaluation to ensure environmental safety. Eval Complexity Eval Charge Codes 88862 - Low Complexity PHYSICIAN CERTIFICATION: I certify the specified therapy services for Siomara Krishna are required, authorized, and reviewed every 30 days.
--- NOTE | 2024-01-13 10:05 | PC.NURSE ---
added pts son to her contact list per her sister juan pablo taylor [phone]
--- NOTE | 2024-01-13 10:09 | HMH.PTEV ---
Physical Therapy Evaluation Rehab PT IP Evaluation Start: 01/13/24 08:20 Freq: ONCE Status: Active Protocol: Document 01/13/24 09:48 GAVIN (Rec: 01/13/24 10:08 GAVIN [id number]) Subjective/History History History Ms. Krishna is an 83-year-old female with with history of mild cognitive impairment, lives in a house right next to her son. Pt reports she was previously independent in all ADLs at home. Pt states she has a few stairs around the house but is able to navigate them independently. Pt reports she uses a cane at home for ambulating. Subjective Subjective Pt can recall her name and current place, but cannot recall the exact year of her birthday. Pt denies any pain this date and consents to therapy services. Rehab PT IP Eval Objective Appearance Patient Behavior Appropriate,Cooperative Patient Orientation Person,Place Speech Pattern Clear,Appropriate,Coherent Ambulation Patient Able to Ambulate Yes Ambulation Observation IP General Gait Pattern Observation No Deviations/Normal Ambulation Distance (feet) 30 Ambulation Assistive Device None Ambulation Ability Contact Guard/Hand Hold Balance Ability to Arise Able, uses arms to help Sitting Balance Steady, safe Dynamic Sitting Balance Ability Good Dynamic Standing Balance Ability Good Transfers Bed Transfer Ability Independent Sit to Stand Bed Transfer Ability Contact Guard/Hand Hold Rehab PT IP prob,goals,plan Problems Date of Evaluation: 01/13/24 Discharge Plan PT Discharge Plan Pt is currently able to return home. Pt may benefit from home health therapy services PHYSICIAN CERTIFICATION: I certify the specified therapy services for Siomara Krishna are required, authorized, and reviewed every 30 days.
--- NOTE | 2024-01-13 10:10 | SW/DCPLANNER ---
Addendum entered by Hanna Patton 01/13/24 11:37: Jim w/ [facility] stated that services will start the first of next week for this patient. Addendum entered by Hanna Patton 01/13/24 11:11: Patient information/order has been faxed to [facility] . Original Note: I spoke w/ patient regarding plans once medically stable for discharge. PT/OT evaluated patient and recommended returning home w/ home health services. Patient is agreeable to home health services at this time. I will set up home health at time of discharge. Patient may discharge home later today.
[2024-01-13 12:00] VITALS: BP 121/51; PULSE 71; RESP 15; TEMP 37; O2SAT 97
--- NOTE | 2024-01-13 13:24 | PC.NURSE ---
spoke with pts sister who is her transportation, she said she would be here in about an hr.
--- NOTE | 2024-01-16 16:14 | SW/DCPLANNER ---
Hospital follow up phone call: no working number listed.
== END 2024-01-13 15:32 | disposition home health service (06) ==
LOC: ER 14:08 → OR 14:22 → 2ND 15:44
PROVIDERS: Internal Medicine Gastroenterology; Admitting Provider Internal Medicine Adolescent Medicine; Emergency Provider Emergency Medicine; Visit Provider Internal Medicine Adolescent Medicine
PROC: 0DJD8ZZ Inspection of Lower Intestinal Tract, Via Natural or Artificial Opening Endoscopic (ICD-10-PCS; CPT 45330; principal; 2024-01-12 15:00)
DX: A04.72 Enterocolitis due to Clostridium difficile, not specified as recurrent (principal); R19.7 Diarrhea, unspecified; R10.9 Unspecified abdominal pain; I10 Essential (primary) hypertension; G31.84 Mild cognitive impairment of uncertain or unknown etiology; K62.1 Rectal polyp; K64.1 Second degree hemorrhoids; K57.91 Diverticulosis of intestine, part unspecified, without perforation or abscess with bleeding; Z79.899 Other long term (current) drug therapy
CPT/HCPCS: 45380; 36415; 71275; 74174; 80053; 81001; 82803; 83605; 83690; 83735; 84484; 85025; 86803; 87389; 87507; 93005; 97165; 99285; G0378; J0131; J2405; J7120; Q9967